=== PATIENT | female | born 1955 | race Caucasian/White ===

== ENCOUNTER → 2017-11-03 15:31 | Outpatient (CLI) | payer OTHER, SELFPAY ==
--- NOTE | 2017-11-03 | DI.RAD.S_ITS ---
PROCEDURE: XR HIP W PEL IF DONE RT 2V INDICATIONS: HIP PAIN TECHNIQUE: AP pelvis with lateral view(s) of the right hip(s). COMPARISON: None. FINDINGS: Bones: No fractures or dislocations. Pelvic ring appears intact. No suspicious bony lesions. Minimal degenerative narrowing is present within the hips bilaterally. Soft tissues: The visualized bowel gas pattern is normal. No suspicious soft tissue calcifications. IMPRESSION: Minimal early degenerative change within the hips bilaterally. Dictated by: Anya Mead M.D. on 11/03/2017 at 16:50 Approved by: Anya Mead M.D. on 11/03/2017 at 16:51
== END ==
PROVIDERS: Family Provider Family Medicine; Visit Provider Nurse Practitioner Family
DX: M16.0 Bilateral primary osteoarthritis of hip (principal); M25.551 Pain in right hip
CPT/HCPCS: 73502

== ENCOUNTER → 2018-02-12 13:38 | Outpatient (CLI) | payer OTHER, SELFPAY | PROVIDERS: Family Provider Family Medicine; Visit Provider Internal Medicine | DX: M85.88 Other specified disorders of bone density and structure, other site (principal); Z78.0 Asymptomatic menopausal state | CPT/HCPCS: 77080 ==

== ENCOUNTER → 2018-07-13 13:39 | Outpatient (CLI) | payer MEDICARE, SELFPAY ==
--- NOTE | 2018-07-13 | DI.CT.S_ITS ---
PROCEDURE: CT SINUS SCREEN WO CON INDICATIONS: Chronic sinusitis, unspecified TECHNIQUE: Noncontrast 3.0 mm axial images acquired from the frontal sinuses to the mid-sella, with coronal and sagittal reformats. For radiation dose reduction, the following was used: automated exposure control, adjustment of mA and/or kV according to patient size. COMPARISON: None. FINDINGS: Image quality: Excellent. Maxillary Sinuses: No bony remodeling or destruction. Sinuses are clear. Ethmoid Air Cells: No bony remodeling or destruction. Sinuses are clear. Sphenoid Sinuses: No bony remodeling or destruction. Sinuses are clear. Frontal Sinuses: No bony remodeling or destruction. Sinuses are clear. Ostiomeatal Complexes: Ostiomeatal complexes are patent. No Jay cells. Miscellaneous: Visualized intra-orbital contents are normal. Bilateral middle terminate dixie bullosa. Mild rightward nasal septal deviation. IMPRESSION: 1. No evidence of sinusitis. 2. Mild rightward nasal septal deviation. 3. Bilateral middle turbinate dixie bullosa. Dictated by: Guillermo Camacho M.D. on 07/13/2018 at 14:25 Approved by: Guillermo Camacho M.D. on 07/13/2018 at 14:26
== END ==
PROVIDERS: Family Provider Family Medicine; PCP Internal Medicine; Visit Provider Otolaryngology
DX: J32.8 Other chronic sinusitis (principal); J34.89 Other specified disorders of nose and nasal sinuses; J34.2 Deviated nasal septum; J34.3 Hypertrophy of nasal turbinates
CPT/HCPCS: 70486

== ENCOUNTER → 2019-05-27 10:50 | Outpatient (CLI) | payer MEDICARE, SELFPAY ==
--- NOTE | 2019-05-27 | DI.CT.S_ITS ---
PROCEDURE: CT ABDOMEN PELVIS W CON INDICATIONS: R10.10 ABD PAIN/PELVIC PAIN TECHNIQUE: After the administration of oral and intravenous contrast, 5 mm thick sections acquired from the diaphragms to the symphysis. 5 mm thick coronal and sagittal reformats were performed. For radiation dose reduction, the following was used: automated exposure control, adjustment of mA and/or kV according to patient size. COMPARISON: None. FINDINGS: Image quality: Excellent. ABDOMEN: Lung bases: Lung bases are clear. Heart size is normal. Solid organs: Liver is normal in size and enhancement. A few sub-centimeter hepatic hypodensities which most likely represent benign cyst or hemangioma. Gallbladder is absent. Biliary system is non-dilated. Pancreas enhances normally. Spleen is normal in size and enhancement. No adrenal nodules. Kidneys are normal in size and enhancement, without hydronephrosis. Right kidney scarring. Right ureter is mildly patulous. Increased contiguity of the right ureteral wall. No striated nephrogram demonstrated. Peritoneum and bowel: Stomach, small bowel, and colon loops are normal in caliber and wall thickness. No free fluid or air. Left lower quadrant surgical clip. Prior torsed epiploic appendage in the left pelvis, (). Appendix is normal in caliber. The cecum is located in the right upper abdomen. Right colon is decompressed. There is increased conspicuity of the fat in the right colonic wall. Nodes and vessels: No retroperitoneal or mesenteric adenopathy. Aorta and inferior vena cava are normal in caliber. Miscellaneous: No ventral hernias. PELVIS: Genitourinary: Bladder wall thickness is normal. Uterus is unremarkable. Miscellaneous: No inguinal hernias or adenopathy. Bones: No suspicious bony lesions. No vertebral body compression fractures. IMPRESSION: 1. Right ureteral wall is mildly patulous with increased conspicuity. There is also scarring in the right kidney. These findings may be due to current or prior urinary tract infection. 2. No bowel obstruction. No free fluid. Dictated by: Maninder Lomas M.D. on 05/27/2019 at 12:33 Approved by: Maninder Lomas M.D. on 05/27/2019 at 12:43
== END ==
PROVIDERS: Family Provider Family Medicine; PCP Internal Medicine; Referring Provider Internal Medicine; Visit Provider Internal Medicine
DX: R10.2 Pelvic and perineal pain (principal); R10.10 Upper abdominal pain, unspecified
CPT/HCPCS: 74177; Q9967

== ENCOUNTER → 2019-09-19 13:32 | Outpatient (CLI) | payer MEDICARE, SELFPAY ==
[2019-09-22 04:26] LABS: COVID19 Sendout Not Detected (Not Detected)
== END ==
PROVIDERS: Family Provider Family Medicine; PCP Internal Medicine; Visit Provider Registered Nurse
DX: R05 Cough (principal)
CPT/HCPCS: 87635

== ENCOUNTER → 2019-10-16 14:51 | Outpatient (CLI) | payer MEDICARE, SELFPAY ==
--- NOTE | 2019-10-16 | DI.RAD.S_ITS ---
PROCEDURE: XR CHEST 2V INDICATIONS: Chronic Cough TECHNIQUE: 2 views of the chest were acquired. COMPARISON: None. FINDINGS: Surgical changes and devices: None. Lungs and pleura: Scattered subsegmental atelectasis and/or scarring. No focal consolidation. No pleural effusions or pneumothorax. Mediastinum: Mediastinal contours are normal. Heart size is normal. Bones and chest wall: No suspicious bony abnormalities. Soft tissues appear unremarkable. IMPRESSION: No acute disease Dictated by: Joselito Ramirez M.D. on 10/16/2019 at 15:37 Approved by: Joselito Ramirez M.D. on 10/16/2019 at 15:37
== END ==
PROVIDERS: Family Provider Family Medicine; PCP Family Medicine; Referring Provider Family Medicine; Visit Provider Family Medicine
DX: R05 Cough (principal)
CPT/HCPCS: 71046

== ENCOUNTER → 2020-05-28 08:18 | Outpatient (CLI) | payer MEDICARE, SELFPAY ==
[2020-05-28] MEDS: COVID-19 VACC #1, MRNA(MOD) 100 MCG/0.5 ML VIAL IM (08:24)
== END ==
PROVIDERS: Visit Provider Internal Medicine
DX: Z23 Encounter for immunization (principal)
CPT/HCPCS: 0011A; 91301

== ENCOUNTER → 2020-06-25 09:56 | Outpatient (CLI) | payer MEDICARE, SELFPAY ==
[2020-06-25] MEDS: COVID-19 VACC #2, MRNA(MOD) 100 MCG/0.5 ML VIAL IM (09:59)
== END ==
PROVIDERS: Visit Provider Internal Medicine
DX: Z23 Encounter for immunization (principal)
CPT/HCPCS: 0012A; 91301

== ENCOUNTER → 2020-09-22 15:04 | Outpatient (CLI) | payer MEDICARE, SELFPAY ==
[2020-09-22 16:56] LABS: Cancer Antigen 125 12.2 U/mL (0-35)
== END ==
PROVIDERS: PCP Family Medicine; Referring Provider Obstetrics & Gynecology; Visit Provider Obstetrics & Gynecology
DX: R19.09 Other intra-abdominal and pelvic swelling, mass and lump (principal)
CPT/HCPCS: 36415; 86304

== ENCOUNTER → 2020-09-25 12:02 | Outpatient (CLI) | payer MEDICARE, SELFPAY ==
--- NOTE | 2020-09-25 12:03 | DI.US.S_ITS ---
PROCEDURE: US PELVIC COMPLETE INDICATIONS: BLOATING; FAMILY HX OVARIAN CANCER TECHNIQUE: Real-time scanning was performed of the pelvic organs, with image documentation. Additional endovaginal scanning was necessary due to incomplete visualization of the adnexal and endometrial structures by transabdominal scanning. COMPARISON: [facility], CT, CT ABDOMEN PELVIS W CON, 05/27/2019, 11:40. FINDINGS: Uterus: Uterus is normal in size at 7.2 x 3.7 x 4.9 cm. The endometrium measures 1.9 mm in combined thickness. Ovaries: Ovaries are not identified. No adnexal masses seen. Other: No pathologic free abdominal or pelvic fluid. IMPRESSION: Ovaries are not identified and cannot be evaluated. Dictated by: Walt So [facility] Interpreted: Freddy Romero MD on 09/25/2020 at 12:53 Transcribed by: LEROY on 09/25/2020 at 12:54 Approved by: Freddy Romero M.D. on 09/25/2020 at 14:00
== END ==
PROVIDERS: PCP Family Medicine; Referring Provider Obstetrics & Gynecology; Visit Provider Obstetrics & Gynecology
DX: R14.0 Abdominal distension (gaseous) (principal); Z80.41 Family history of malignant neoplasm of ovary
CPT/HCPCS: 76830; 76856

== ENCOUNTER → 2021-02-05 13:01 | Outpatient (CLI) | payer MEDICARE, SELFPAY ==
--- NOTE | 2021-02-05 13:02 | DI.MG.S_ITS ---
BILATERAL DIGITAL SCREENING MAMMOGRAM 3D/2D WITH CAD: 02/05/2021 CLINICAL: Routine screening. Family history of breast cancer. Comparison is made to exams dated: 06/25/2015 mammogram and 09/28/2017 mammogram - outside facility. There are scattered fibroglandular elements in both breasts. Current study was also evaluated with a Computer Aided Detection (CAD) system. No significant masses, calcifications, or other findings are seen in either breast. There has been no significant interval change. IMPRESSION: NEGATIVE There is no mammographic evidence of malignancy. A 1 year screening mammogram is recommended. This exam was interpreted at Station ID: [id number]. NOTE: For mammograms, a report in lay terms will be sent to the patient. Approximately 15% of breast malignancies will not be visualized mammographically. In the management of a palpable breast mass, a negative mammogram must not discourage biopsy of a clinically suspicious lesion. Electronically Signed By: Candace burns/[place]:02/05/2021 14:29:26 letter sent: Normal Exam ACR BI-RADS Category 1: Negative [id number]
== END ==
PROVIDERS: PCP Internal Medicine; Referring Provider Internal Medicine; Visit Provider Internal Medicine
DX: Z12.31 Encounter for screening mammogram for malignant neoplasm of breast (principal); Z80.3 Family history of malignant neoplasm of breast
CPT/HCPCS: 77063; 77067

== ENCOUNTER → 2021-04-29 17:03 | Outpatient (CLI) | payer MEDICARE, SELFPAY ==
[2021-04-29 18:12] LABS: Add Manual Diff / Slide Review NO; Basophils Absolute Auto 0 /uL (0-100); Basophils Percent Auto 0.3 % (0-2); Eosinophils Absolute Auto 100 /uL (0-450); Eosinophils Percent Auto 1.8 % (2-4); Hematocrit 40.5 % (36-46); Hemoglobin 14.2 g/dL (12.0-16.0); Lymphocytes Absolute Auto 1900 /uL (1100-4500); Lymphocytes Percent Auto 31.8 % (25-40); Mean Corpuscular Hemoglobin 32.8 PG (26-34); Mean Corpuscular Volume 93.9 fL (80-100); Monocytes Absolute Auto 500 /uL (0-900); Monocytes Percent Auto 8.6 % (3-14); Neutrophils Absolute Auto 3500 /uL (1500-7000); Neutrophils Percent Auto 57.5 % (50-75); Platelet Count 273 X10^3/uL (150-400); Red Blood Cell Count 4.31 X10^6/uL (4.0-5.2); Red Cell Distribution Width 12.7 % (11.6-14.8); White Blood Cell Count 6.1 X10^3/uL (4.5-11.0)
[2021-04-29 18:25] LABS: Alanine Aminotransferase 14 IU/L (<35); Albumin 4.3 g/dL (3.5-5.0); Albumin Globulin Ratio 1.3 (1.0-2.8); Alkaline Phosphatase 63 U/L (38-126); Aspartate Aminotransferase 20 IU/L (14-36); BUN Creatinine Ratio 12.9 (6-22); Bilirubin Total 0.6 mg/dL (0.2-1.3); Blood Urea Nitrogen 11 mg/dL (7-17); C-Reactive Protein Quant < 0.5 mg/dL (<1.0); Calcium 9.5 mg/dL (8.4-10.2); Carbon Dioxide 31 mmol/L (22-32); Chloride 102 mmol/L (98-107); Estimated Glomerular Filt Rate > 60.0 mL/min (>60); Globulin 3.2 g/dL (1.7-4.1); Glucose 93 mg/dL (80-110); HEMOLYSIS < 15 (0-50); Potassium 3.7 mmol/L (3.4-5.1); Sodium 137 mmol/L (137-145); Total Protein 7.5 g/dL (6.3-8.2)
[2021-04-29 18:29] LABS: Rheumatoid Factor < 8.6 IU/mL (<12.0)
[2021-04-29 18:35] LABS: Erythrocyte Sedimentation Rate 10 MM/HR (0-20)
[2021-04-29 18:39] LABS: Free T4, Direct Thyroxine 0.95 ng/dL (0.78-2.19)
[2021-04-29 18:54] LABS: Thyroid Stimulating Hormone 2.08 uIU/mL (0.47-4.68)
[2021-05-01 12:44] LABS: ANA Screen, IFA Negative (.)
== END ==
PROVIDERS: PCP Internal Medicine; Referring Provider Internal Medicine; Visit Provider Internal Medicine
DX: M12.9 Arthropathy, unspecified (principal)
CPT/HCPCS: 36415; 80053; 84439; 84443; 85025; 85651; 86038; 86140; 86430

== ENCOUNTER → 2021-06-03 12:29 | Outpatient (CLI) | payer MEDICARE, SELFPAY ==
--- NOTE | 2021-06-03 12:31 | DI.ECHO.S_ITS ---
[facility] +---------+ : : [address] : : : : [id number] : : : : Phone: [phone]+ Echocardiogram Report + + :Name: MARISELA THORNTON Study Date: 06/03/2021 Height: 67.5 in: :[facility] ReadingLocation: Weight: 160 lb : : Gender: Female BSA: 1.9 m2 : :: 1955 Age: 66 yrs BP: 140/80 mmHg: :Reason For Study: Arrhythmia : :Ordering Physician: : :BRIA Performed By: Terry Armendariz : :Referring: COLT BLACKBURN : + + Interpretation Summary The left ventricle is normal in size and wall thickness. Left ventricular systolic function appears normal without focal wall motion abnormalities. The ejection fraction is estimated to be 60-65%. The right ventricle is normal in size and function. There is mild mitral regurgitation. There is mild tricuspid regurgitation. The right ventricular systolic pressure is estimated to be at least 23 mmHg based on an estimated right atrial pressure of 3 mm Hg. Procedure: A two-dimensional transthoracic echocardiogram with color flow and Doppler was performed. The study quality was technically adequate. Most of the acoustic windows were suboptimal, but the best imaging was obtained from the parasternal window. There is no prior echocardiogram noted for this patient. The patient was in normal sinus rhythm during the exam. Left Ventricle: The left ventricle is normal in size and wall thickness. There is no thrombus. Left ventricular systolic function appears normal without focal wall motion abnormalities. The ejection fraction is estimated to be 60-65%. Diastolic parameters suggest a relaxation abnormality of the left ventricle, consistent with probable normal filling pressures. Right Ventricle: The right ventricle is normal in size and function. Atria: Both atria are normal in size. There is no Doppler evidence for an interatrial shunt. Mitral Valve: The mitral valve is normal. There is mild mitral regurgitation. Aortic Valve: The aortic valve opens well. The aortic valve is not well visualized. There is no aortic valve stenosis. No aortic regurgitation is present. Tricuspid Valve: The tricuspid valve is normal. There is mild tricuspid regurgitation. The right ventricular systolic pressure is estimated to be at least 23 mmHg based on an estimated right atrial pressure of 3 mm Hg. Pulmonic Valve: The pulmonic valve is not well visualized. Great Vessels: The aortic root is normal size. The ascending aorta is normal in size. The aortic arch is normal in size. The IVC is of normal diameter and collapses greater than 50% with a sniff. This suggests a low right atrial pressure of 3 mm Hg. Pericardium/ Pleura There is an anterior echo-free space consistent with a fat pad. There is no pleural effusion. MMode/2D Measurements & Calculations LVIDd: 4.1 cm LVOT diam: 1.8 cm LVIDs: 2.3 cm Ao root diam: 2.8 cm FS: 43.9 % asc Aorta Diam: 2.7 cm IVSd: 0.60 cm Ao Arch Diam (Prox Trans): 2.1 cm LVPWd: 0.80 cm LV aranda. diameter/BSA (cm/m^2): 2.2 LV sys. diameter/BSA (cm/m^2): 1.2 LA A2 area: 7.9 cm2 RA long axis: 3.6 cm LA A4 area: 13.1 cm2 RA area: 12.2 cm2 LA length (vol): 3.8 cm RA vol: 34.7 ml LA vol: 23.5 ml RA : 18.7 ml/m2 LA vol index: 12.7 ml/m2 TAPSE_phl: 2.5 cm Doppler Measurements & Calculations Ao V2 max: 106.0 cm/sec LVOT Max Zhao: 88.1 cm/sec Ao V2 mean: 83.6 cm/sec LV V1 max P.1 mmHg Ao max P.0 mmHg LV V1 VTI: 19.3 cm Ao mean P.0 mmHg MAIA(I,D): 1.9 cm2 Ao V2 VTI: 25.5 cm MAIA(V,D): 2.1 cm2 sev ratio: 0.76 MAIA indexed to BSA (cm^2/m^2): 1.0 MV E max zhao: 65.6 cm/sec TR max zhao: 224.0 cm/sec MV A max zhao: 72.0 cm/sec TR max P.1 mmHg MV E/A: 0.91 Med Peak E' Zhao: 5.3 cm/sec E/E' med: 12.3 Lat Peak E' Zhao: 8.2 cm/sec E/E' lat: 8.0 E/e' average: 10.2 MV dec time: 0.25 sec SV(LVOT): 49.1 ml AV VR_phl: 0.83 MAIA(VTI)/BSA_phl: 1.0 MV P1/2t-pr_phl: 73.0 msec Reading Physician:06:14 PM
== END ==
PROVIDERS: PCP Internal Medicine; Referring Provider Internal Medicine; Visit Provider Internal Medicine
DX: I08.1 Rheumatic disorders of both mitral and tricuspid valves (principal); R01.1 Cardiac murmur, unspecified; I49.9 Cardiac arrhythmia, unspecified
CPT/HCPCS: 93306

== ENCOUNTER → 2021-06-07 09:50 | Outpatient (CLI) | payer MEDICARE, SELFPAY ==
--- NOTE | 2021-06-30 09:09 | P.HOLT.S_ITS ---
[facility] Report Referral & Results Date Patient Seen: 06/07/21 Requesting provider: Nixon Guzmán Indication: Arrhythmia Duration of monitoring (days): 14 Diary information: There were 9 patient triggered events and 6 patient diary entries All of these patient events were associated with sinus rhythm and simple PVCs Data: Minimum heart rate identified was 59 beats per minute at 09:35 on 06/10/2021 Maximum sinus heart rate was 153 beats per minute at 11:57 on 06/08/2021 Maximum overall heart rate was 176 beats per minute at 19:52 on 06/12/2021 during a run of SVT Less than 1% of identified beats were ventricular or supraventricular ectopic in origin, which would classify them as rare. 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
== END ==
PROVIDERS: PCP Internal Medicine; Referring Provider Internal Medicine; Visit Provider Internal Medicine
DX: I49.9 Cardiac arrhythmia, unspecified (principal)
CPT/HCPCS: 93246; 93248

== ENCOUNTER → 2021-06-30 14:47 | Outpatient (CLI) | payer MEDICARE, SELFPAY ==
--- NOTE | 2021-06-30 | DI.RAD.S_ITS ---
PROCEDURE: XR ABDOMEN MIN 2V INDICATIONS: ALTERED BOWEL FUNCTION TECHNIQUE: 2 views of the abdomen were acquired. COMPARISON: None. FINDINGS: Surgical changes and devices: Cholecystectomy clips. Bowel: No pneumoperitoneum. The bowel gas pattern is nonspecific. Large amount of stool noted in the right colon in the rectum. Moderate amount of stool in the left colon. Soft tissues: No masses; visualized solid organ contours appear normal in size. No suspicious abdominal calcifications. Bones: No suspicious bony abnormalities. IMPRESSION: 1. Nonspecific bowel gas pattern without definite evidence of obstruction. If patient's symptoms persist or worsen, consider CT scan of the abdomen/pelvis for additional evaluation. 2. Large right colon, large rectal and moderate left colon fecal loading. Dictated by: Sussy Angulo MD, PhD on 06/30/2021 at 16:50 Approved by: Sussy Angulo MD, PhD on 06/30/2021 at 16:51
== END ==
PROVIDERS: PCP Internal Medicine; Referring Provider Internal Medicine Gastroenterology; Visit Provider Internal Medicine Gastroenterology
DX: R19.8 Other specified symptoms and signs involving the digestive system and abdomen (principal); R10.9 Unspecified abdominal pain
CPT/HCPCS: 74019

== ENCOUNTER → 2021-07-16 14:43 | Outpatient (CLI) | payer MEDICARE, SELFPAY ==
[2021-07-16 16:15] LABS: COVID19 -Nasal RAPID Negative (Negative)
== END ==
PROVIDERS: PCP Internal Medicine; Visit Provider Family Medicine Sleep Medicine
DX: Z20.822 Contact with and (suspected) exposure to COVID-19 (principal)
CPT/HCPCS: 87635; C9803

== ENCOUNTER 2021-07-19 11:17 | Day surgery (SDC) | payer MEDICARE, SELFPAY ==
[2021-07-19] VITALS (9 sets, daily range): BP systolic 122–155; BP diastolic 55–71; PULSE 64–87; RESP 13–20; TEMP 36.2–36.8; O2SAT 94–100; BMI 24.3
--- NOTE | 2021-07-19 | PATH_ITS ---
[facility] Accession Number: [id number] . 01 Material submitted: . colon - APPENDICEAL ORIFICE POLYP . 02 Diagnosis: Appendiceal Orifice Polyp: Serrated lesion, cannot completelye exclude sessile serrated adenoma. MRV 07/21/2021 0957 Local . 02 Electronically signed: . Mahsa Crane MD, Pathologist NPI- [id number] . 01 Gross description: . APPENDICEAL ORIFICE POLYP: Received in formalin is 1 fragment(s) of sigala, soft tissue measuring 0.3 x 0.3 x 0.3 cm submitted entirely in 1 cassette(s) /NAA 07/20/2021 2249 Local . 02 Pathologist provided ICD-10: R10.9 . 02 CPT . 771564 Specimen Comment: A courtesy copy of this report has been sent to [phone], [phone] Specimen Comment: 2055 Performed at: 01 [facility] [address], [place], [place] [id number] MD Roddy Saldivar MD Phone: [phone] Performed at: 02 [facility] [address] [place], [place] [id number] MD Janna Clemens MD Phone: [phone]
--- NOTE | 2021-07-19 12:04 | PM.HP.1 ---
History of Present Illness History of Present Illness Date Patient Seen: 07/19/21 Time Patient Seen: 12:04 Chief complaint: SDC Narrative: Personal history of colon polyps. Last exam was a couple years ago by Dr. Amin. A 2 year recall was recommended. She struggles with fecal loading and the symptoms that go along with that. I reviewed my note from June 29. Apart from the revelation of fecal loading, no significant changes. Patient History Medical History Depression Gluten intolerance H/O adenomatous polyp of colon H/O renal calculi Hayfever Hepatitis C test positive IBS (irritable bowel syndrome) Postmenopausal HRT (hormone replacement therapy) Surgical History S/P cholecystectomy S/P total knee arthroplasty (~2015) S/P tubal ligation (~1979) Family & Social History Social History: household members spouse Tobacco & Substance use: Smoking Status Never smoker alcohol intake frequency holiday/special occasion Substance Use Type does not use Meds Home Medications and Allergies Home Medications Medication Instructions Recorded Confirmed Type [VITAMIN] #0 08/03/03 05/20/21 History fluticasone propionate 50 1 spray NASAL DAILY 04/09/18 07/19/21 History mcg/actuation nasal spray,suspension cholecalciferol (vitamin D3) 25 25 mcg PO DAILY 11/23/20 07/19/21 History mcg (1,000 unit) capsule albuterol sulfate 90 mcg/actuation 2 puff INHALATION Q6H PRN #8.5 g 11/24/20 07/19/21 Rx aerosol inhaler sertraline 50 mg tablet 75 mg PO DAILY #135 tab 05/24/21 07/19/21 Rx estradiol 0.05 mg-norethindrone See Rx Instructions .ROUTE 05/31/21 07/19/21 Rx 0.14 mg/24 hr semiwkly transderm .COMPLEX #24 patch patch (CombiPatch) bupropion HCl 75 mg tablet 75 mg PO DAILY #30 tab 06/22/21 07/19/21 Rx estradiol 0.05 mg-norethindrone patch 07/16/21 History 0.14 mg/24 hr semiwkly transderm patch (CombiPatch) Allergies Allergy/AdvReac Type Severity Reaction Status Date / Time cephalexin Allergy Mild Rash Verified 05/20/21 10:21 Penicillins Allergy Mild rash Verified 05/20/21 10:21 Review of Systems Review of Systems ROS: Yes All systems reviewed with the patient and are negative except as otherwise documented Exam Vital Signs (past 8 hours): - 07/19/21 11:32 Temperature 98.2 F Pulse Rate 87 Respiratory Rate 16 Blood Pressure 134/68 Pulse Oximetry 98 Oxygen Delivery Method Room Air Const General: cooperative and comfortable Orientation: alert HENMT Head: normocephalic Ears: external ears normal Nose: external nose normal Face and sinus: normal facial exam Eyes General: appearance normal, both eyes and all related structures Neck Neck: normal visual inspection Chest Chest: normal inspection of the chest Resp Effort & Inspection: normal respiratory effort Cardio Rate: regular rate GI Inspection: normal to inspection Skin General: no rashes or lesions noted and No jaundice Neuro General: patient alert and moves all extremities Cognition: normal cognition Speech: speech normal Extrem General: no pedal edema Psych Appearance: grossly normal Assessment & Plan Assessment & Plan narrative: 66-year-old female with a personal history of adenomatous colon polyps. Colonoscopy is pursued today. Time Spent With Patient Critical Care time: I spent a total of [] minutes of critical care time on this patient's care today; this time is exclusive of procedural time.
[2021-07-19] MEDS: SODIUM CHLORIDE 0.9% 1,000 ML 70 ML IV (12:08)
--- NOTE | 2021-07-19 14:12 | P.OP.COLON_ITS ---
Operative Date/Time/Diagnoses Date of procedure: 07/19/21 Time of procedure: 14:12 Pre-op diagnosis: Personal history of colon polyps Post-op diagnosis: same Procedure & Clinicians Study performed: Colonoscopy with biopsy Same procedure as scheduled: Yes Indications: Personal history of colon polyps Surgeon: Balwinder Roach Procedure Notes SCOAP/Timeout: Done Procedure in detail: After the risks and benefits were explained, written and verbal informed consent was obtained. The patient was brought into the procedure room and placed into the left lateral decubitus position. Please see nurse automotive glass technician note for sed ation details. Digital rectal examination was accomplished. The scope was introduced into the patient and advanced under direct visualization to the cecum as identified by the appendiceal orifice and ileocecal valve. The scope was slowly withdrawn to carefully examine the mucosa for any defects or lesions. Comprehensive imaging was accomplished throughout the rectum including the dentate line. The colon was decompressed, the scope was then removed from the patient who tolerated the procedure well. Pediatric colonoscope Bowel prep adequate Scope withdrawal time: 14 minutes Sedation minutes: 33 Complications: none Impression: Patient had a very tortuous colon and challenging navigation. There was a sessile irregular approximately 7-8 mm polyp intimately associated with the appendiceal orifice. My 1st instinct was to attempt a snare. However the polyp seemed to extend down into the appendiceal orifice and I suspect this would place her at moderately high risk for a perforation. I therefore elected to take a biopsy of the polyp close to where it dropped down into the appendiceal orifice for histopathologic analysis. Endoscopic diagnosis 1. Twisty colon 2. Appendiceal orifice polyp Post-procedure Plan for aftercare: 1. Await histopathology 2. Short-term GI clinic follow-up to discuss the next steps which may unfortunately be a and appendectomy/Cecectomy. Disposition: PACU
== END 2021-07-19 15:00 | disposition home or self-care (01) ==
PROVIDERS: PCP Internal Medicine; Referring Provider Internal Medicine Gastroenterology; Visit Provider Internal Medicine Gastroenterology
PROC: 0DJD8ZZ Inspection of Lower Intestinal Tract, Via Natural or Artificial Opening Endoscopic (ICD-10-PCS; CPT 45378; principal; 2021-07-19 12:30)
DX: Z12.11 Encounter for screening for malignant neoplasm of colon (principal); Z86.010 Personal history of colon polyps; D12.1 Benign neoplasm of appendix
CPT/HCPCS: 45380; J2704

== ENCOUNTER → 2021-08-19 10:44 | Outpatient (CLI) | payer MEDICARE, SELFPAY ==
--- NOTE | 2021-08-19 10:46 | DI.CT.S_ITS ---
PROCEDURE: CT ABDOMEN PELVIS W CON INDICATIONS: Abdominal pain TECHNIQUE: After the administration of oral and IV contrast, axial sections were acquired from the lung bases to the pubic symphysis. Coronal and sagittal reformats were performed. For radiation dose reduction, the following was used: automated exposure control, adjustment of mA and/or kV according to patient size. COMPARISON: [facility], CT, CT ABDOMEN PELVIS W CON, 05/27/2019, 11:40. FINDINGS: Image quality: Excellent. Lung bases: Unremarkable. Heart: No significant findings. ABDOMEN: Liver: A few small hypodense foci which are unchanged since 2019 and have the appearance of benign cysts. Gallbladder: Surgically absent. Biliary ducts: Unremarkable. Pancreas: Unremarkable. Spleen: Unremarkable. Adrenal Glands: No nodule. Kidneys and Ureters: Right renal scarring. No hydronephrosis. Stomach and Bowel: Stomach, small bowel loops, and colon are unremarkable. Appendix is not dilated, (2/38). No appendiculolith. Small low-density nodule in the left pelvis, (2/68), unchanged since 2019. Possibly prior epiploic appendagitis. Peritoneum: No abnormal intraperitoneal fluid. No free air. Ventral Wall: No hernia. Abdominal Nodes: No retroperitoneal or mesenteric adenopathy by size criteria. Vessels: Aorta and inferior vena cava are normal in size. Mild atherosclerotic plaque. Circumaortic left renal vein. PELVIS: Pelvic Organs: Unremarkable. Bladder: Unremarkable. Pelvic Nodes: No enlarged lymph nodes. Miscellaneous: No inguinal hernias are seen. Bones: No suspicious lesion. No compression fracture. IMPRESSION: 1. The appendix is not dilated. 2. No metastatic disease identified. No adenopathy. No free fluid. 3. No hydronephrosis. Similar scarring at the right kidney. Dictated by: Maninder Lomas M.D. on 08/19/2021 at 14:15 Approved by: Maninder Lomas M.D. on 08/19/2021 at 14:30
[2021-08-19 11:15] LABS: BUN Creatinine Ratio 18.1 (6-22); Blood Urea Nitrogen 13 mg/dL (7-17); Estimated Glomerular Filt Rate > 60 mL/min (>60)
== END ==
PROVIDERS: PCP Internal Medicine; Referring Provider Surgery; Visit Provider Surgery
DX: R10.9 Unspecified abdominal pain (principal); Z90.49 Acquired absence of other specified parts of digestive tract
CPT/HCPCS: 36415; 74177; 82565; 84520; Q9967

== ENCOUNTER → 2021-08-31 09:45 | Outpatient (CLI) | payer MEDICARE, SELFPAY ==
[2021-08-31 12:26] LABS: COVID19 -Nasal RAPID Negative (Negative)
== END ==
PROVIDERS: PCP Internal Medicine; Visit Provider Surgery
DX: Z01.812 Encounter for preprocedural laboratory examination (principal); Z20.822 Contact with and (suspected) exposure to COVID-19
CPT/HCPCS: 87635

== ENCOUNTER 2021-09-01 07:48 | Emergency (ER) | payer MEDICARE, SELFPAY ==
[2021-09-01 08:00] VITALS: BP 139/74; PULSE 81; RESP 18; TEMP 36.6; O2SAT 97
--- NOTE | 2021-09-01 08:08 | ED.NAVMDI ---
HPI - Nausea/Vomiting/Diarrhea General Chief complaint: Nausea/Vomiting/Diarrhea Stated complaint: Thinks reaction to surgery prep meds, vomiting Time Seen by Provider: 09/01/21 07:58 History of Present Illness HPI Narrative: Patient is a 66-year-old female history of depression anxiety presents today with nausea. She is supposed to have laparoscopic cecetomy pain check in around 9:00 a.m. this morning. Yesterday she follow the instruction she took Dulcolax neomycin and Flagyl. She said after she took Flagyl she vomited for couple of hours then it stopped. She has take another dose of Flagyl at 10:00 p.m. she again vomited for a couple of hours. She still feels slightly nauseous but has had no further vomiting. She does not have clear stool but it is runny. Denies any significant abdominal cramping. Has she has a mild headache she feels like she might be dehydrated. She was trying to drink fluids. No fever. She wanted to be checked before checking into her surgery Related Data Home Medications Medication Instructions Recorded Confirmed fluticasone propionate 50 1 spray NASAL DAILY 04/09/18 09/01/21 mcg/actuation nasal spray,suspension cholecalciferol (vitamin D3) 25 25 mcg PO DAILY 11/23/20 09/01/21 mcg (1,000 unit) capsule estradiol 0.05 mg-norethindrone 1 patch TOPICAL 2XW 07/16/21 09/01/21 0.14 mg/24 hr semiwkly transderm patch (CombiPatch) fexofenadine 180 mg tablet 180 mg PO BEDTIME 08/23/21 09/01/21 Previous Rx's Medication Instructions Recorded albuterol sulfate 90 mcg/actuation 2 puff INHALATION Q6H PRN #8.5 g 11/24/20 aerosol inhaler sertraline 50 mg tablet 75 mg PO DAILY #135 tab 05/24/21 bupropion HCl 75 mg tablet 75 mg PO DAILY #30 tab 06/22/21 acetaminophen 325 mg capsule 650 mg PO QID PRN #60 cap 09/01/21 (Tylenol) docusate sodium 100 mg capsule 100 mg PO BID #30 cap 09/01/21 (Colace) ibuprofen 200 mg tablet 400 mg PO Q6H #60 tab 09/01/21 ondansetron HCl 4 mg tablet 4 mg PO Q6H PRN #20 tab 09/01/21 oxycodone 5 mg tablet 5 mg PO Q6H PRN #20 tab 09/01/21 Allergies Allergy/AdvReac Type Severity Reaction Status Date / Time Penicillins Allergy Severe rash, Verified 09/01/21 09:27 swelling cephalexin Allergy Intermediate Rash Verified 09/01/21 09:27 Cephalosporins Allergy Intermediate Rash Verified 09/01/21 09:27 lactase [From Dairy Aid] Allergy Intermediate ITCHING Verified 09/01/21 09:27 gluten AdvReac Intermediate Abdominal Verified 09/01/21 09:27 pain, diarrhea Review of Systems Review of Systems Narrative: GENERAL: Denies chills, fatigue, malaise, fever, sweats, travel HEENT: Denies sinus pain, ear pain, sore throat, difficulty swallowing, neck pain RESPIRATORY: Denies dyspnea, cough, wheezing, hemoptysis, sputum. CARDIOVASCULAR: see HPI : Denies dysuria, frequency, incontinence, hematuria, urinary retention, flank pain. MUSCULOSKELETAL: Denies weakness, joint pain, or bony pain SKIN: No rash, no erythema, no pruritus NEUROLOGIC: Denies weakness, dizziness, headache, numbness, change in speech, confusion PSYCHIATRIC: No concerning psychosocial issues. 12 point review of systems is negative except for those stated above and HPI Patient History Medical History (Updated 09/01/21 @ 08:22 by Mally Lucio DO) Arthritis Depression Gluten intolerance H/O adenomatous polyp of colon H/O renal calculi Hayfever Heart murmur Hepatitis C test positive IBS (irritable bowel syndrome) Kidney stones Postmenopausal HRT (hormone replacement therapy) Surgical History S/P cholecystectomy S/P total knee arthroplasty (~2015) S/P tubal ligation (~1979) Social History household members: spouse Smoking Status: Former smoker alcohol intake: current Smoking Status: Former smoker alcohol intake frequency: holidays/special occasions only Substance Use Type: does not use Exam Initial Vital Signs Initial Vital Signs: Vital Signs Temperature 97.8 F 09/01/21 08:00 Pulse Rate 81 09/01/21 08:00 Respiratory Rate 18 09/01/21 08:00 Blood Pressure 139/74 09/01/21 08:00 Pulse Oximetry 97 09/01/21 08:00 GENERAL: Alert well-appearing 66-year-old female in [no acute] distress. HEENT: Head atraumatic,EOMI, pupils reactive, face symmetric, [moist] mucous membranes CARDIOVASCULAR: Regular rate and rhythm without murmurs, rubs or gallops. RESPIRATORY: Breath sounds equal bilaterally, no wheezes rales or rhonchi. ABDOMEN: Soft, nontender. Normoactive bowel sounds all 4 quadrants. No guarding or rebound. EXTREMITIES: Normal range of motion, no clubbing or edema. Neurovascularly intact NEUROLOGICAL: Alert and oriented x4. SKIN: Warm, dry, no laceration, no petechiae, no rashes or lesions. Course Orders Ordered: Discontinued Medications Ondansetron HCl (Ondansetron 4 Mg Odt) 4 mg SL NOW ONE Stop: 09/01/21 08:17 Last Admin: 09/01/21 08:25 Dose: 4 mg Documented by: ARIADNE MDM - Nausea/Vomiting/Diarrhea MDM Narrative Medical decision making narrative: The patient overall appears well. She has 1 hour before she has to check into her surgery. She has no significant abdominal pain or vomiting at this time. She has mild headache which may be due from dehydration. However vitals are stable. Time discussed case with Dr. Bull he states that he is happy to give her fluids in the OR during her surgery. Discharge Plan Departure Patient Disposition: Home Clinical Impression: Vomiting Instructions: DI for Vomiting -- Adult Activity Restrictions/Additional Instructions: Starting had a bad experience with your prep Please check in as scheduled for your surgery I have discussed her situation with Dr. Bull. Please follow-up with Dr. Bull an your primary care provider Continue all medications as prescribed Emergency department if you should have any new or worsening symptoms Prescriptions: No Action albuterol sulfate 90 mcg/actuation HFA aerosol inhaler 2 puff inhalation Q6H PRN (Reason: shortness of breath or wheezing) Qty: 8.5 2RF Label Comments: rare use for allergies sertraline 50 mg tablet 75 mg PO DAILY Qty: 135 3RF bupropion HCl 75 mg tablet 75 mg PO DAILY Qty: 30 3RF fluticasone propionate 50 mcg/actuation spray,suspension 1 spray NASAL DAILY 0RF cholecalciferol (vitamin D3) 25 mcg (1,000 unit) capsule 25 mcg PO DAILY 0RF fexofenadine 180 mg Tablet 180 mg PO BEDTIME 0RF ibuprofen 200 mg tablet 400 mg PO Q6H Qty: 60 0RF docusate sodium [Colace] 100 mg capsule 100 mg PO BID Qty: 30 0RF oxycodone 5 mg tablet 5 mg PO Q6H PRN (Reason: pain) Qty: 20 0RF acetaminophen [Tylenol] 325 mg capsule 650 mg PO QID PRN (Reason: pain) Qty: 60 0RF ondansetron HCl 4 mg tablet 4 mg PO Q6H PRN (Reason: nausea and vomiting) Qty: 20 0RF CombiPatch 0.05-0.14 mg/24 hr patch semiweekly 1 patch topical 2XW 0RF Label Comments: off 09/01 Referrals: Nixon Guzmán MD [Primary Care Provider] -
[2021-09-01] MEDS: ONDANSETRON 4 MG ODT SL (08:25)
--- NOTE | 2021-09-01 08:31 | PC.NURSE ---
pt has not vomited since arrival.
[2021-09-01 08:42] VITALS: BP 139/70; PULSE 79; RESP 16; O2SAT 97
== END 2021-09-01 08:42 | disposition home or self-care (01) ==
PROVIDERS: Emergency Provider Emergency Medicine; PCP Internal Medicine; Referring Provider Surgery
DX: R11.2 Nausea with vomiting, unspecified (principal)

== ENCOUNTER 2021-09-01 08:47 | Inpatient (IN) | payer MEDICARE, SELFPAY ==
[2021-08-23 13:56] VITALS: BMI 24.3
[2021-09-01] VITALS (10 sets, daily range): BP systolic 97–143; BP diastolic 015–75; PULSE 72–96; RESP 11–21; TEMP 36.4–36.9; O2SAT 92–100; BMI 24.3
--- NOTE | 2021-09-01 | PATH_ITS ---
[facility] Accession Number: [id number] . 01 Material submitted: . colon - PARTIAL CECECTOMY . 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 Please see summary data below. . Tumor site: Diffusely involving appendix. Histologic type: Low-grade appendiceal mucinous neoplasm. Histologic grade: G1, well differentiated. Tumor deposits: Not identified. Tumor extent: Confined to luminal appendix with retention of muscularis mucosae. Lymphovascular invasion: Not identified. Perineural invasion: Not identified. Margin status for noninvasive tumor and mucin: All margins negative for noninvasive tumor and mucin. Regional lymph node status: Not applicable (No regional lymph nodes submitted or found). Pathologic Stage Classification (AJCC 8th Edition): pT category: pTis (LAMN). pN category: pN not assigned (no nodes submitted or found). pM category: Not applicable. . Additional findings: Sessile serrated adenoma of cecum. V 09/10/2021 1221 Local . 02 Comment: As part of routine plant quality manager, Dr. Crane and Dr. Reyes also reviewed this case and agree with the interpretation. Dr. Clemens discussed results with Dr. Bull on 09/10/2021. . 02 Diagnosis provided by: . Janna Clemens MD, Pathologist NPI- [id number] . 01 Electronically signed: . Janna Clemens MD, Pathologist NPI- [id number] . 01 Gross description: . Received in formalin and labeled with the patient's name, designated 1. Partial cecectomy is a 3.5 x 1.5 x 1.5 cm portion of cecum, received closed with a stapled proximal end (removed and inked blue), contiguous with a 10.5 cm long by 0.7 cm in diameter vermiform appendix, received longitudinally opened proximally over a length of 4.5 cm, and a scant amount of mesoappendix. The serosa is gomez-sigala with moderate focal dense hemorrhagic adhesions. The rim of the opened lumen is inked orange. Within the proximal appendix/appendiceal orifice area, there is a 1.5 x 1.2 x 0.3 cm ragged polyp, that is exposed at the defect and 0.4 cm from the nearest staple line. The remaining mucosa is sigala, wrinkled and unremarkable. The wall thickness is 0.1-0.3 cm. The appendiceal lumen is otherwise pinpoint-0.4 cm, filled with mucoid material in the distal portion. No additional lesions are identified. There is no attached adipose tissue and no lymph nodes are identified. Co Founder And Chairman sections are submitted as follows: . A1: Polyp with respect to defect and proximal mucosal margin. A2: Co Founder And Chairman cecum. A3: Co Founder And Chairman cross-sections of appendix, including distal bisected tip. (THEO:[id number]) A4-A7: Remaining sections of vermiform appendix and orange-inked tissue. (:[id number]) . . /MRV 09/10/2021 1221 Local . 02 Microscopic: . Immunohistochemical stains were performed on block A3 in order to characterize cell of interest. All control stains showed appropriate reactivity. . Result: PAX8: Negative. SATB2: Positive. . Interpretation: This limited immunophenotype is compatible with colonic origin. . * This test was developed and its performance characteristics determined by [facility]. It has not been cleared or approved by the U.S. Food and Drug Administration. The FDA has determined that such clearance or approval is not necessary. This test is used for clinical purposes. It should not be regarded as investigational or for research. . 02 Pathologist provided ICD-10: D37.3 . 02 CPT . 287676, K65113, H90221 Specimen Comment: A courtesy copy of this report has been sent to [phone] Performed at: 01 [facility] [address] [facility], [place], [place] [id number] MD Roddy Saldivar MD Phone: [phone] Performed at: 02 [facility] [place] [id number] [place] [id number] MD Janna Clemens MD Phone: [phone]
[2021-09-01] MEDS: LACTATED RINGERS 1,000 ML 100 ML IV ×3 (09:50→14:48)
[2021-09-01] MEDS: ONDANSETRON 4 MG/2 ML INJ IV ×2 (10:10→16:21)
[2021-09-01] MEDS: SCOPOLAMINE 1 PATCH TOP (10:10)
--- NOTE | 2021-09-01 10:14 | SUR.PREOP ---
Spoke with Dr Solis in OR #2. Pt with nausea and vomiting since yesterday after pre-op antibiotics. Received 4mg zofran ODT in ED this am. Still 6/10 on nausea scale. Has received 500ml of LR IV. Hx of severe PONV. See new orders.
--- NOTE | 2021-09-01 11:21 | PM.PREOP ---
Pre-operative Note Interval Note History & Physical reviewed/Exam performed by Physician: Yes Changes to H&P: No
[2021-09-01] MEDS: metroNIDAZOLE 500 MG/100 ML PIGGYBACK 100 MG IV (12:00)
[2021-09-01] MEDS: levoFLOXacin 500 MG/100 ML PIGGYBACK 100 MG IV (12:00)
--- NOTE | 2021-09-01 12:08 | SUR.PREOP ---
1115 Dr Bull notified of Levofloxacin and Ondasteron contraindication from JUN.
[2021-09-01] MEDS: BUPIVACAINE 0.25% (PF) VIAL 30 ML INJ (12:15)
--- NOTE | 2021-09-01 12:26 | SUR.OPER ---
Supine on padded OR bed, head on pillow, arms secured on padded arm boards at <90 degrees abduction, legs uncrossed, safety belt at thigh, gel pad under heels.
--- NOTE | 2021-09-01 12:27 | SUR.OPER ---
Supine on padded OR bed, head on pillow, right arm secured on padded arm board at <90 degrees abduction left arm tucked with gel pad and drawsheet, legs uncrossed, safety belt at thigh, gel pad under heels.
--- NOTE | 2021-09-01 13:29 | P.OP_ITS ---
Operative Date/Time/Diagnoses Date of procedure: 09/01/21 Time of procedure: 13:29 Pre-op diagnosis: Sessile serrated polyp of cecum Post-op diagnosis: same Procedure & Clinicians Procedure: Laparoscopic partial cectomy Same procedure as scheduled: Yes Indications: 66-year-old woman with a serrated sessile polyp of the cecum within the appen diceal orifice Surgeon: Marlon Bull Click Yes if Unassisted: Yes Anesthesia Type: General Operative Notes Findings: 5 mm polyp within the appendicieal orifice Specimen(s): other (cectomy) Estimated Blood Loss (mL): 20 Procedure in detail: Patient was brought to the operating room placed supine on the table. Bilateral lower extremity compression devices were applied. Anesthesia was induced and they intubated with an endotracheal tube. They received 3.375 g of Zosyn prior to skin incision. The left arm was tucked and appropriately padded. They were prepped and draped in sterile fashion. Time-out was performed. An infraumbilical incision was made the umbilical stalk was grasped and elevated and incision was made and the abdomen was entered atraumatically. A 12 mm balloon trocar was then placed through the incision and pneumoperitoneum of 14 mm Hg was established. The scope was then inserted and the abdomen inspected, there was no evidence of injury upon entry. Two 5 mm ports were placed under direct visualization, one in the left lower quadrant and second in the lower midline. A thorough laparoscopic evaluation was performed inspecting all four quadrants. The patient was then tilted right side up. The small bowel was then swept to the upper aspect of the abdomen. The tenie were followed to the base of the cecum where the appendix was identified. The cecum was mobilized medially by incising the white line of Toldt. The appendix was was mobilized from its lateral attachments. The appendix was grasped and a window within the mesentery was made at the base of the appendix using the [place] dissector with care to avoid injuring the cecum. The mesoappendix was then divided using the ligature. The mesenteric staple line was inspected for hemostasis. The terminal ileum and the appendix were in very close proximity. Therefore the umbilical incision was extended slightly an extra small sang wound protector was placed. The appendix with a portion of the cecum was resected using a Endo TOMMY stapler blue 60 mm x 2. The staple line was inspected it was hemostatic and without leak. The specimen was opened on the back table there does appear to be a small polyp at the appendiceal orifice. The 5 mm ports were then removed under direct visualization. The umbilical fascial incision was closed with 0 Vicryl. The skin wounds were irrigated and closed with 4-0 Monocryl followed by the application of Dermabond. Sponge instrument count at the end of the operation was correct. The patient tolerated procedure well was extubated and transferred to the postoperative care unit in stable condition. Complications: none Post-operative Condition: stable Disposition: same day surgery
[2021-09-01] MEDS: BENZOCAINE/MENTHOL 1 LOZ PKT 1 EACH PO (14:47)
--- NOTE | 2021-09-01 15:00 | SUR.PHASEII ---
1415 Dr Solis to bedside to check on patient. Pt with postnasal drip causing cough in throat. See order for Cepacol. NO difficulty breathing or SOB>
--- NOTE | 2021-09-01 15:53 | SUR.PHASEII ---
Dr Bull in to see patient.
== END 2021-09-01 16:44 | disposition home or self-care (01) | DRG 331 ==
PROVIDERS: Admitting Provider Surgery; PCP Internal Medicine; Referring Provider Surgery; Visit Provider Surgery
PROC: 0DTJ4ZZ Resection of Appendix, Percutaneous Endoscopic Approach (ICD-10-PCS; CPT 44970; principal; 2021-09-01 11:15)
DX: C18.1 Malignant neoplasm of appendix (principal); R11.2 Nausea with vomiting, unspecified; Z20.822 Contact with and (suspected) exposure to COVID-19
CPT/HCPCS: 44204; 87635; 99282; 99283; C9803; G0378; G0379; J1956; J2250; J2405; J2704; J3010

== ENCOUNTER → 2021-10-15 12:01 | Outpatient (CLI) | payer MEDICARE, SELFPAY ==
[2021-10-15 14:05] LABS: Appearance Urine UA CLEAR; Bilirubin Urine UA NEGATIVE (NEGATIVE); Color Urine UA YELLOW; Glucose Urine UA NEGATIVE (Negative); Ketones Urine UA NEGATIVE (NEGATIVE); Leukocyte Esterase Urine UA NEGATIVE (NEGATIVE); Nitrite Urine UA NEGATIVE (Negative); Occult Blood Urine UA 2+ (Negative); Protein Urine UA NEGATIVE (Negative); Specific Gravity Urine UA <=1.005 (1.000-1.035); Urobilinogen Urine UA 0.2 E.U./dL (0.2)
[2021-10-15 14:12] LABS: Bacteria Urine Few (2-10); Culture Indicated Urine Cult Not Indicated; RBC Urine 1-5/HPF (0-5/HPF); Squamous Epithelial Cell Urine 1-5 /HPF (0-5/HPF); WBC Urine 0-1/HPF (0-5/HPF)
== END ==
PROVIDERS: PCP Internal Medicine; Referring Provider Internal Medicine; Visit Provider Internal Medicine
DX: R30.0 Dysuria (principal)
CPT/HCPCS: 81001

== ENCOUNTER → 2022-02-12 11:33 | Outpatient (CLI) | payer MEDICARE, SELFPAY ==
--- NOTE | 2022-02-12 11:35 | DI.MG.S_ITS ---
BILATERAL DIGITAL SCREENING MAMMOGRAM 3D/2D WITH CAD: 02/12/2022 CLINICAL: Routine screening. Family history of breast cancer. Comparison is made to exams dated: 02/05/2021 mammogram - [facility], 09/28/2017 mammogram, and 06/25/2015 mammogram - outside facility. There are scattered areas of fibroglandular density in both breasts (category b / 25%-50% glandular tissue). Current study was also evaluated with a Computer Aided Detection (CAD) system. No significant masses, calcifications, or other findings are seen in either breast. There has been no significant interval change. IMPRESSION: NEGATIVE There is no mammographic evidence of malignancy. A 1 year screening mammogram is recommended. Based on the Tyrer Cuzick model (a risk assessment model) the patient's lifetime risk is 8.1% and her 10 year risk is 4.5%. According to the ACR, ACS, and NCCN guidelines, an annual breast MRI exam along with mammogram is recommended if the patient's lifetime risk is 20% or greater. This exam was interpreted at Station ID: [id number]. NOTE: For mammograms, a report in lay terms will be sent to the patient. Approximately 15% of breast malignancies will not be visualized mammographically. In the management of a palpable breast mass, a negative mammogram must not discourage biopsy of a clinically suspicious lesion. Electronically Signed By: Marcos bowers/china:02/12/2022 12:41:54 letter sent: Normal Exam ACR BI-RADS Category 1: Negative 3341F
== END ==
PROVIDERS: PCP Internal Medicine; Referring Provider Internal Medicine; Visit Provider Internal Medicine
DX: Z12.31 Encounter for screening mammogram for malignant neoplasm of breast (principal); Z80.3 Family history of malignant neoplasm of breast
CPT/HCPCS: 77063; 77067

== ENCOUNTER → 2022-02-21 15:28 | Outpatient (CLI) | payer MEDICARE, SELFPAY ==
[2022-02-21 16:46] LABS: Add Manual Diff / Slide Review NO; Basophils Absolute Auto 0 /uL (0-100); Basophils Percent Auto 0.4 % (0-2); Eosinophils Absolute Auto 100 /uL (0-450); Eosinophils Percent Auto 2.5 % (2-4); Hematocrit 40.4 % (36-46); Lymphocytes Absolute Auto 1900 /uL (1100-4500); Lymphocytes Percent Auto 34.4 % (25-40); Mean Corpuscular HGB Conc 34.6 % (30-36); Mean Corpuscular Hemoglobin 32.7 PG (26-34); Mean Corpuscular Volume 94.5 fL (80-100); Monocytes Absolute Auto 500 /uL (0-900); Monocytes Percent Auto 9.4 % (3-14); Neutrophils Absolute Auto 2900 /uL (1500-7000); Neutrophils Percent Auto 53.3 % (50-75); Platelet Count 251 X10^3/uL (150-400); Red Blood Cell Count 4.28 X10^6/uL (4.0-5.2); Red Cell Distribution Width 12.9 % (11.6-14.8); White Blood Cell Count 5.5 X10^3/uL (4.5-11.0)
[2022-02-21 17:43] LABS: Alanine Aminotransferase 19 IU/L (<35); Albumin 4.2 g/dL (3.5-5.0); Albumin Globulin Ratio 1.5 (1.0-2.8); Alkaline Phosphatase 58 U/L (38-126); Amylase 39 U/L (30-110); Aspartate Aminotransferase 20 IU/L (14-36); BUN Creatinine Ratio 18.9 (6-22); Bilirubin Total 0.5 mg/dL (0.2-1.3); Blood Urea Nitrogen 14 mg/dL (7-17); Calcium 8.9 mg/dL (8.4-10.2); Carbon Dioxide 30 mmol/L (22-32); Chloride 102 mmol/L (98-107); Estimated Glomerular Filt Rate > 60 mL/min (>60); Globulin 2.8 g/dL (1.7-4.1); Glucose 85 mg/dL (80-110); HEMOLYSIS < 15 (0-50); Lipase 52 U/L (23-300); Potassium 3.9 mmol/L (3.4-5.1); Sodium 139 mmol/L (137-145)
== END ==
PROVIDERS: PCP Internal Medicine; Referring Provider Internal Medicine; Visit Provider Internal Medicine
DX: R10.11 Right upper quadrant pain (principal)
CPT/HCPCS: 36415; 80053; 82150; 83690; 85025

== ENCOUNTER → 2022-02-22 06:51 | Outpatient (CLI) | payer MEDICARE, SELFPAY ==
--- NOTE | 2022-02-22 09:12 | DI.CT.S_ITS ---
PROCEDURE: CT ABDOMEN PELVIS W CON INDICATIONS: right upper quad pain TECHNIQUE: After the administration of oral and intravenous contrast, axial sections were acquired from the lung bases to the pubic symphysis. Coronal and sagittal reformats were performed. For radiation dose reduction, the following was used: automated exposure control, adjustment of mA and/or kV according to patient size. COMPARISON:[facility], CT, CT ABDOMEN PELVIS W CON, 08/19/2021, 12:24. FINDINGS: Image quality: Adequate. Lung bases: No pleural effusion. ABDOMEN: Liver: Few scattered hepatic hypodensities present that are too small to characterize but are not significantly changed. Gallbladder: Surgically absent. Biliary ducts: Unremarkable. Pancreas: Unremarkable. Spleen: Unremarkable. Adrenal Glands: Unremarkable. Kidneys and Ureters: No hydronephrosis. Areas of scarring at the right kidney redemonstrated. Stomach and Bowel: No bowel obstruction. The cecum is present at the right upper quadrant of the abdomen as before. Possible wall thickening of the ascending colon and hepatic flexure versus artifact from underdistention. Staple line at the cecal tip, possible prior appendectomy. Peritoneum: No abnormal intraperitoneal fluid. No free air. Abdominal Nodes: No retroperitoneal or mesenteric adenopathy by size criteria. Vessels: Aorta and inferior vena cava are normal in size. PELVIS: Pelvic Organs: Unremarkable. Bladder: Unremarkable. Pelvic Nodes: No enlarged lymph nodes. Bones: Multilevel degenerative change of the visualized spine. IMPRESSION: 1. Possible wall thickening of the ascending colon and hepatic flexure versus artifact from underdistention. The finding raises the possibility of an infectious or inflammatory colitis. 2. Otherwise, no potential acute abnormality identified within the abdomen or pelvis. Dictated by: Ted Newton M.D. on 02/22/2022 at 10:15 Approved by: Ted Newton M.D. on 02/22/2022 at 10:33
== END ==
PROVIDERS: PCP Internal Medicine; Referring Provider Internal Medicine; Visit Provider Internal Medicine
DX: R10.11 Right upper quadrant pain (principal)
CPT/HCPCS: 74177

== ENCOUNTER → 2022-04-04 15:12 | Outpatient (CLI) | payer MEDICARE, SELFPAY ==
[2022-04-06 07:09] LABS: Candida species Negative (Negative); Gardnerella vaginalis Negative (Negative); Trichomoas vaginalis Negative (Negative)
== END ==
PROVIDERS: PCP Internal Medicine; Visit Provider Physician Assistant Medical
DX: N89.8 Other specified noninflammatory disorders of vagina (principal)
CPT/HCPCS: 87480; 87510; 87660

== ENCOUNTER → 2022-08-19 16:02 | Outpatient (CLI) | payer MEDICARE, SELFPAY ==
[2022-08-19 17:42] LABS: Hematocrit 43.2 % (36-46); Hemoglobin 15.1 g/dL (12.0-16.0); Mean Corpuscular HGB Conc 35.1 % (30-36); Platelet Count 278 X10^3/uL (150-400); Red Blood Cell Count 4.59 X10^6/uL (4.0-5.2); Red Cell Distribution Width 12.9 % (11.6-14.8); White Blood Cell Count 7.7 X10^3/uL (4.5-11.0)
[2022-08-19 17:47] LABS: Alanine Aminotransferase 17 IU/L (<35); Albumin 4.4 g/dL (3.5-5.0); Albumin Globulin Ratio 1.6 (1.0-2.8); Alkaline Phosphatase 63 U/L (38-126); Aspartate Aminotransferase 22 IU/L (14-36); Bilirubin Total 0.8 mg/dL (0.2-1.3); Blood Urea Nitrogen 14 mg/dL (7-17); Calcium 9.5 mg/dL (8.4-10.2); Carbon Dioxide 27 mmol/L (22-32); Chloride 101 mmol/L (98-107); Cholesterol 227 mg/dL (140-199); Estimated Glomerular Filt Rate > 60 mL/min (>60); Globulin 2.7 g/dL (1.7-4.1); Glucose 112 mg/dL (80-110); HDL Cholesterol 67 mg/dL (40-60); HEMOLYSIS < 15 (0-50); LDL Cholesterol Calculated 129 mg/dL (<100); Potassium 4.1 mmol/L (3.4-5.1); Sodium 137 mmol/L (137-145); Total Protein 7.1 g/dL (6.3-8.2); Triglycerides 154 mg/dL (35-150)
[2022-08-19 18:15] LABS: TSH w/ Reflex to FT4 1.19 uIU/mL (0.47-4.68)
== END ==
PROVIDERS: PCP Internal Medicine; Referring Provider Internal Medicine; Visit Provider Internal Medicine
DX: E78.2 Mixed hyperlipidemia (principal); B19.20 Unspecified viral hepatitis C without hepatic coma; N95.1 Menopausal and female climacteric states; Z85.09 Personal history of malignant neoplasm of other digestive organs
CPT/HCPCS: 36415; 80053; 80061; 84443; 85027; 87522

== ENCOUNTER → 2022-11-08 12:26 | Outpatient (CLI) | payer MEDICARE, SELFPAY ==
--- NOTE | 2022-11-08 12:27 | DI.MRI.S_ITS ---
BREAST MRI OF BOTH BREASTS: 11/08/2022 CLINICAL: Family History of Malignant neoplasm of breast. PROCEDURE: MR BREAST BI WO/W CON INDICATIONS: 6 month FU, dense breast, family hx breast cancer TECHNIQUE: The patient was placed prone in a dedicated breast imaging coil. Precontrast axial STIR and 3D FLASH without fat saturation sequences were obtained. Both before and after bolus injection of contrast, sequential 1-minute axial 3D FLASH with fat saturation sequences for 3 time points, with subtraction images and maximum intensity projections (MIP's) generated. Delayed sagittal FLASH images with fat saturation were also obtained. Computer-aided detection, including computer algorithm analysis of MRI image data for lesion detection and characterization, pharmacokinetic analysis, with further physician review for interpretation, was performed. COMPARISON: None. FINDINGS: Image quality: Excellent. There is minimal background parenchymal enhancement. Right breast: No suspicious enhancement or mass lesions. Left breast: No suspicious enhancement or mass lesions. Miscellaneous: No axillary or intramammary adenopathy. Limited visualization of the heart, mediastinum, lungs and upper abdomen are unremarkable. IMPRESSION: NEGATIVE Negative breast MRI. Return to annual mammogram screening schedule is recommended. Future imaging is recommended as follows: 02/13/2023 screening mammogram. This exam was interpreted at Station ID: [id number]. Electronically Signed By: Amanda mccurdy/:11/08/2022 17:33:58 letter sent: Normal Exam ACR BI-RADS Category 1: Negative 3341F
== END ==
PROVIDERS: PCP Internal Medicine; Referring Provider Physician Assistant Medical; Visit Provider Physician Assistant Medical
DX: R92.2 Inconclusive mammogram (principal); Z80.3 Family history of malignant neoplasm of breast
CPT/HCPCS: 77049; A9579

== ENCOUNTER → 2023-02-01 09:48 | Outpatient (CLI) | payer MEDICARE, SELFPAY ==
--- NOTE | 2023-02-01 09:49 | DI.RAD.S_ITS ---
PROCEDURE: XR FOOT LT MIN 3V INDICATIONS: left 2nd toe pain TECHNIQUE: 3 views of the foot were acquired. COMPARISON: None. FINDINGS: Bones: Mild 1st MTP degenerative changes. No displaced fracture or dislocation. Soft tissues: Plantar enthesopathy. IMPRESSION: No acute osseous abnormality. If there is high concern for further derangement, consider MRI evaluation. Dictated by: Renato Corrigan M.D. on 02/01/2023 at 13:05 Approved by: Renato Corrigan M.D. on 02/01/2023 at 13:06
== END ==
PROVIDERS: PCP Internal Medicine; Referring Provider Internal Medicine; Visit Provider Internal Medicine
DX: M79.675 Pain in left toe(s) (principal); M15.9 Polyosteoarthritis, unspecified
CPT/HCPCS: 73630

== ENCOUNTER → 2023-03-27 12:04 | Outpatient (CLI) | payer MEDICARE, SELFPAY ==
--- NOTE | 2023-03-27 | DI.RAD.S_ITS ---
PROCEDURE: XR FOOT LT 2V INDICATIONS: PAINFUL LUMP LEFT FOOT TECHNIQUE: 3 views of the foot were acquired. COMPARISON: None. FINDINGS: Bones: No fractures or dislocations. No suspicious bony lesions. Mild osteoarthritic changes in ankle and foot. Calcaneal spurring. Soft tissues: No tibiotalar joint effusion. Achilles tendon appears normal. IMPRESSION: 1. No acute bony abnormality. 2. Mild osteoarthritis. 3. Calcaneal spurring. Dictated by: Rosetta Madison M.D. on 03/27/2023 at 16:37 Approved by: Rosetta Madison M.D. on 03/27/2023 at 16:39
== END ==
PROVIDERS: PCP Internal Medicine; Referring Provider Obstetrics & Gynecology; Visit Provider Obstetrics & Gynecology
DX: M19.072 Primary osteoarthritis, left ankle and foot (principal); M77.32 Calcaneal spur, left foot; M79.672 Pain in left foot
CPT/HCPCS: 73620; 73630

== ENCOUNTER → 2023-05-04 14:11 | Outpatient (CLI) | payer MEDICARE, SELFPAY ==
--- NOTE | 2023-05-04 14:12 | DI.MG.S_ITS ---
BILATERAL DIGITAL SCREENING MAMMOGRAM 3D/2D WITH CAD: 05/04/2023 CLINICAL: Routine screening. Family history of breast cancer. Comparison is made to exams dated: 02/12/2022 mammogram, 02/05/2021 mammogram - [facility], and 09/28/2017 mammogram - outside facility. There are scattered areas of fibroglandular density in both breasts (category b / 25%-50% glandular tissue). Current study was also evaluated with a Computer Aided Detection (CAD) system. No significant masses, calcifications, or other findings are seen in either breast. There has been no significant interval change. IMPRESSION: NEGATIVE There is no mammographic evidence of malignancy. A 1 year screening mammogram is recommended. Based on the Tyrer Cuzick model (a risk assessment model) the patient's lifetime risk is 7.7% and her 10 year risk is 4.5%. According to the ACR, ACS, and NCCN guidelines, an annual breast MRI exam along with mammogram is recommended if the patient's lifetime risk is 20% or greater. This exam was interpreted at Station ID: [id number]. NOTE: For mammograms, a report in lay terms will be sent to the patient. Approximately 15% of breast malignancies will not be visualized mammographically. In the management of a palpable breast mass, a negative mammogram must not discourage biopsy of a clinically suspicious lesion. Electronically Signed By: Ted rivera/china:05/04/2023 15:29:48 letter sent: Normal Exam ACR BI-RADS Category 1: Negative 3341F
== END ==
PROVIDERS: PCP Internal Medicine; Referring Provider Obstetrics & Gynecology; Visit Provider Obstetrics & Gynecology
DX: Z12.31 Encounter for screening mammogram for malignant neoplasm of breast (principal); Z80.3 Family history of malignant neoplasm of breast; R92.323 Mammographic fibroglandular density, bilateral breasts
CPT/HCPCS: 77063; 77067

== ENCOUNTER → 2023-10-31 14:09 | Outpatient (CLI) | payer MEDICARE, SELFPAY ==
--- NOTE | 2023-10-31 14:09 | DI.US.S_ITS ---
ULTRASOUND OF RIGHT AXILLA: 10/31/2023 CLINICAL: Palpable right axillary lump and pain. Comparison is made to exams dated: 05/04/2023 mammogram, 11/08/2022 breast MRI, 02/12/2022 mammogram, 02/05/2021 mammogram - [facility], 09/28/2017 mammogram, and 06/25/2015 mammogram - outside facility. Real-time ultrasound of the right axilla was performed. Lo scale images of the real-time examination were reviewed. There are normal lymph nodes in the right axilla that correlate with clinical concern and palpable abnormalities. No other significant abnormalities were seen sonographically in the right axilla. IMPRESSION: BENIGN There is no sonographic evidence of malignancy. Palpable areas of concern in the right axilla correlate with normal appearing axillary lymph nodes which are benign. Return to annual mammogram screening schedule is recommended. Next screening mammogram due approximately April 2024. Findings and recommendations were conveyed to the patient during today's evaluation. This exam was interpreted at Station ID: [id number]. Electronically Signed By: Marcos Woodruff M.D. at/:10/31/2023 15:57:36 letter sent: Clinical Evaluation Ultrasound BI-RADS: 2 Benign
== END ==
PROVIDERS: PCP Internal Medicine; Referring Provider Student in an Organized Health Care Education/Training Program; Visit Provider Student in an Organized Health Care Education/Training Program
DX: R22.30 Localized swelling, mass and lump, unspecified upper limb (principal)
CPT/HCPCS: 76882

== ENCOUNTER → 2024-01-25 11:05 | Outpatient (CLI) | payer MEDICARE, SELFPAY ==
[2024-01-25 11:59] LABS: Influenza A - CEPHEID Flu A NEGATIVE (NEGATIVE); Influenza B - CEPHEID Flu B NEGATIVE (NEGATIVE); Respiratory Syncytial Virus Negative (Negative)
[2024-01-25 12:27] LABS: COVID-19 CEPHEID 4-PLEX PCR Negative (Negative)
== END ==
PROVIDERS: PCP Internal Medicine; Referring Provider Nurse Practitioner Family; Visit Provider Nurse Practitioner Family
DX: R53.83 Other fatigue (principal); R53.1 Weakness
CPT/HCPCS: 0241U

== ENCOUNTER 2024-03-05 12:10 | Emergency (ER) | payer MEDICARE, SELFPAY ==
[2024-03-05] VITALS (10 sets, daily range): BP systolic 139–196; BP diastolic 63–83; PULSE 56–88; RESP 16–28; TEMP 36.4; O2SAT 93–98; BMI 24.6
--- NOTE | 2024-03-05 12:30 | DI.RAD.S_ITS ---
PROCEDURE: XR CHEST 1V INDICATIONS: chest pain TECHNIQUE: One view of the chest was acquired. COMPARISON: [facility], CR, XR CHEST 2V, 10/16/2019, 15:04. FINDINGS: Surgical changes and devices: None. Lungs and pleura: No dense airspace disease or pleural effusions. Mediastinum: Normal heart size Bones and chest wall: Degenerative changes IMPRESSION: No acute radiographic abnormality on this single view study Dictated by: Renato Corrigan M.D. on 03/05/2024 at 13:08 Approved by: Renato Corrigan M.D. on 03/05/2024 at 13:09
--- NOTE | 2024-03-05 12:40 | EKG_ITS ---
[facility] [address] [place] [address] Test Date: 2024-03-05 Pat Name: Sayra Delgado Department: [facility] Room: Gender: Female Peritoneal Dialysis Registered Nurse: TARAS : 1955 Requested By: Order Number: [id number] Reading MD: Nixon Guzmán MD Measurements Intervals [place] Rate: 56 P: 29 UT: 136 QRS: -10 QRSD: 84 T: 54 QT: 488 QTc: 470 Interpretive Statements Sinus bradycardia Low voltage QRS Cannot rule out Anterior infarct , age undetermined Electronically Signed On 03-05-2024 15:33:07 PST by Nixon Guzmán MD
[2024-03-05 12:44] LABS: Add Manual Diff / Slide Review NO; Basophils Absolute Auto 0 /uL (0-100); Basophils Percent Auto 0.4 % (0-2); Eosinophils Absolute Auto 100 /uL (0-450); Eosinophils Percent Auto 1.6 % (2-4); Hematocrit 45.5 % (36-46); Hemoglobin 15.8 g/dL (12.0-16.0); Lymphocytes Absolute Auto 2300 /uL (1100-4500); Lymphocytes Percent Auto 38.9 % (25-40); Mean Corpuscular HGB Conc 34.6 % (30-36); Mean Corpuscular Hemoglobin 32.9 PG (26-34); Mean Corpuscular Volume 94.9 fL (80-100); Monocytes Absolute Auto 600 /uL (0-900); Monocytes Percent Auto 10.2 % (3-14); Neutrophils Absolute Auto 2900 /uL (1500-7000); Neutrophils Percent Auto 48.9 % (50-75); Platelet Count 269 X10^3/uL (150-400); Red Blood Cell Count 4.79 X10^6/uL (4.0-5.2); White Blood Cell Count 5.8 X10^3/uL (4.5-11.0)
[2024-03-05 12:50] LABS: INR 0.9 (0.9-1.3); Prothrombin Time 10.7 SECONDS (9.4-12.5)
[2024-03-05 12:53] LABS: Alanine Aminotransferase 20 IU/L (<35); Albumin 4.5 g/dL (3.5-5.0); Albumin Globulin Ratio 1.5 (1.0-2.8); Alkaline Phosphatase 73 U/L (38-126); Aspartate Aminotransferase 25 IU/L (14-36); Bilirubin Total 1.1 mg/dL (0.2-1.3); Blood Urea Nitrogen 12 mg/dL (7-17); Calcium 9.1 mg/dL (8.4-10.2); Carbon Dioxide 27 mmol/L (22-32); Chloride 102 mmol/L (98-107); Creatine Kinase 27 U/L (30-135); Estimated Glomerular Filt Rate > 60 mL/min (>60); Globulin 3.1 g/dL (1.7-4.1); Glucose 112 mg/dL (80-110); HEMOLYSIS < 15 (0-50); Lipase 68 U/L (23-300); PTT Partial Thromboplastin Tim 41 SECONDS (25.1-36.5); Potassium 3.8 mmol/L (3.4-5.1); Sodium 136 mmol/L (137-145); Total Protein 7.6 g/dL (6.3-8.2)
[2024-03-05 13:05] LABS: NT-proBNP (BNP-Adult 18+) 328 pg/mL (<125); Troponin I < 0.012 ng/mL (0.01-0.034)
--- NOTE | 2024-03-05 13:55 | DI.CT.S_ITS ---
PROCEDURE: CT HEAD/BRAIN WO CON INDICATIONS: dizziness TECHNIQUE: Noncontrast 4.5 mm thick angled axial sections acquired from the foramen magnum to the vertex, with coronal and sagittal reformats. For radiation dose reduction, the following was used: automated exposure control, adjustment of mA and/or kV according to patient size. COMPARISON: None. FINDINGS: Image quality: Diagnostic. CSF spaces: Basal cisterns are patent. No extra-axial fluid collections. The ventricles are symmetric in size and shape. Brain: No intracranial bleeds or masses. There is cerebral volume loss for age, with resultant ventricular and sulcal prominence. There are periventricular and deep white matter chronic small vessel ischemic changes. There is intracranial internal carotid artery atherosclerosis. Skull and face: Calvarium and visualized facial bones appear intact, without suspicious lesions. Sinuses: Visualized sinuses and mastoids are clear. IMPRESSION: No acute intracranial pathology. Dictated by: Desmond Avila M.D. on 03/05/2024 at 14:28 Approved by: Desmond Avila M.D. on 03/05/2024 at 14:34
--- NOTE | 2024-03-05 16:20 | ED.GENADULT ---
HPI - General Adult General Chief complaint: Dizziness Stated complaint: dizziness Time Seen by Provider: 03/05/24 13:52 Source: patient Mode of arrival: Wheelchair History of Present Illness HPI narrative: 68-year-old woman with a history of appendiceal cancer, reflux, currently on hormone replacement therapy, depression who presents complaining of dizziness. She notes she woke this morning feeling well was getting ready for a yoga class when she noticed that she was a bit dizzy. It progressed over the course of the next hour so to the point where she did not feel comfortable driving and did not go to her class. Not associated with fevers, cough, palpitations, chest pain, dyspnea. No headaches. On further questioning she notes over the last months that in her yoga class she is since that her right leg has been more weak than the left. She also notes she does have chronic sinus and seasonal allergy issues. She seems to be doing fairly well right now. Related Data Home Medications Medication Instructions Recorded Confirmed fluticasone propionate 50 1 spray intranasal DAILY 04/09/18 01/25/24 mcg/actuation nasal spray,suspension cholecalciferol (vitamin D3) 25 25 mcg PO DAILY 11/23/20 01/25/24 mcg (1,000 unit) capsule omeprazole 20 mg capsule,delayed 20 mg PO DAILY 01/25/24 01/25/24 release Previous Rx's Medication Instructions Recorded sertraline 50 mg tablet 100 mg (2 x 50 mg) PO DAILY #180 05/18/23 tabs estradiol 2 mg (7.5 mcg/24 hour) 1 vag ring vaginal [id number] #1 ea 12/19/23 vaginal ring (Estring) estradiol 0.05 mg/24 hr semiweekly 1 patch topical 2XW #24 patches 01/18/24 transdermal patch progesterone micronized 100 mg 100 mg PO QAM #90 caps 01/18/24 capsule meclizine 25 mg tablet 25 mg PO TID PRN dizziness #20 tabs 03/05/24 ondansetron 4 mg disintegrating 4 mg PO Q8H PRN nausea and 03/05/24 tablet vomiting #10 tabs Allergies Allergy/AdvReac Type Severity Reaction Status Date / Time Penicillins Allergy Severe rash, Verified 01/25/24 10:21 swelling cephalexin Allergy Intermediate Rash Verified 01/25/24 10:21 Cephalosporins Allergy Intermediate Rash Verified 01/25/24 10:21 lactase [From Dairy Aid] Allergy Intermediate ITCHING Verified 01/25/24 10:21 gluten AdvReac Intermediate Abdominal Verified 01/25/24 10:21 pain, diarrhea Milk Containing Products AdvReac Verified 01/25/24 10:21 (Dairy) Review of Systems Review of Systems Narrative: Pertinent positive and negative findings as per HPI Patient History Medical History (Updated 03/05/24 @ 16:38 by Yamilex Hooker MD) History of adenomatous polyp of colon Primary osteoarthritis involving multiple joints Allergic rhinitis Menopausal syndrome History of malignant neoplasm of appendix Depression, major, recurrent Mixed hyperlipidemia Low grade mucinous neoplasm of appendix Hematuria Kidney stones Arthritis Heart murmur IBS (irritable bowel syndrome) Gluten intolerance Hepatitis C test positive H/O renal calculi Surgical History S/P total knee arthroplasty (~2015) S/P cholecystectomy S/P tubal ligation (~1979) Family History Sister Cancer Sister Cancer Social History details: (Vasyl), 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 Able to give a complete and coherent history. Well-nourished well-developed HEENT: Moist mucous membranes, normal sclera with reactive pupils, nystagmus appreciated with provocative maneuvers for BPV turning her head to the right. Respiratory: Lungs are clear to auscultation, no wheezing no rales no rhonchi. Full and symmetrical air movement Cardiac: Regular rate and rhythm no murmurs no bruits Abdomen: Soft, nontender, good bowel tones, no flank pain Skin: Warm and dry, no rashes Neurologic: Grossly neurologically intact with no obvious asymmetries or abnormalities. NIH equals 0 Extremities: No trauma, well perfused Psych: Cooperative, appropriate insight and affect Course Orders Ordered: ED Orders 03/05/24 12:30 XR chest 1V Stat EKG-12 Lead Stat 03/05/24 12:34 Complete Blood Count AUTO DIFF Stat Comprehensive Metabolic Panel Stat Lipase Stat Magnesium Stat NT-proBNP (BNP-Adult 18+) Stat PTT Partial Thromboplastin Justice Stat Prothrombin Time INR Stat Troponin & CK Cardiac Panel Stat 03/05/24 13:55 CT head/brain wo con Stat Discontinued Medications Aspirin (Aspirin 81 Mg Chew Tab) 324 mg PO NOW ONE Stop: 03/05/24 12:31 Last Admin: 03/05/24 13:57 Dose: Not Given Documented By: TRU Vital Signs Vital signs: Vital Signs - 8 hr 03/05/24 12:19 03/05/24 13:41 03/05/24 13:41 Temperature 97.5 F L Pulse Rate 67 65 Respiratory Rate 16 28 H Blood Pressure 196/81 H 162/83 H Pulse Oximetry 97 98 Oxygen Delivery Method Room Air 03/05/24 14:10 03/05/24 14:11 03/05/24 14:11 Temperature Pulse Rate 77 64 Respiratory Rate 18 Blood Pressure 139/63 Pulse Oximetry 94 98 Oxygen Delivery Method 03/05/24 14:30 03/05/24 14:30 03/05/24 15:00 Temperature Pulse Rate 56 L 58 L Respiratory Rate 17 23 Blood Pressure 154/73 H Pulse Oximetry 97 96 Oxygen Delivery Method 03/05/24 15:00 03/05/24 15:30 Temperature Pulse Rate 60 Respiratory Rate 20 Blood Pressure 148/83 H Pulse Oximetry 97 Oxygen Delivery Method Medical Decision Making Lab Data 03/05/24 12:34 03/05/24 12:34 Labs: Lab Results 03/05/24 Range/Units 12:34 WBC 5.8 (4.5-11.0) X10^3/uL RBC 4.79 (4.0-5.2) X10^6/uL Hgb 15.8 (12.0-16.0) g/dL Hct 45.5 (36-46) % MCV 94.9 (80-100) fL MCH 32.9 (26-34) PG MCHC 34.6 (30-36) % RDW 13.0 (11.6-14.8) % Plt Count 269 (150-400) X10^3/uL Neut % (Auto) 48.9 L (50-75) % Lymph % (Auto) 38.9 (25-40) % Pope % (Auto) 10.2 (3-14) % Eos % (Auto) 1.6 L (2-4) % Baso % (Auto) 0.4 (0-2) % Neut # (Auto) 2900 (4624-2984) /uL Lymph # (Auto) 2300 (6519-3374) /uL Pope # (Auto) 600 (0-900) /uL Eos # (Auto) 100 (0-450) /uL Baso # (Auto) 0 (0-100) /uL PT 10.7 (9.4-12.5) SECONDS INR 0.9 (0.9-1.3) APTT 41 H (25.1-36.5) SECONDS Sodium 136 L (137-145) mmol/L Potassium 3.8 (3.4-5.1) mmol/L Chloride 102 (98-107) mmol/L Carbon Dioxide 27 (22-32) mmol/L BUN 12 (7-17) mg/dL Creatinine 0.75 (0.52-1.04) mg/dL Estimated GFR > 60 (>60) mL/min BUN/Creatinine Ratio 16.0 (6-22) Glucose 112 H (80-110) mg/dL Calcium 9.1 (8.4-10.2) mg/dL Magnesium 2.0 (1.6-2.3) mg/dL Total Bilirubin 1.1 (0.2-1.3) mg/dL AST 25 (14-36) IU/L ALT 20 (<35) IU/L Alkaline Phosphatase 73 (38-126) U/L Total Creatine Kinase 27 L (30-135) U/L Troponin I < 0.012 (0.01-0.034) ng/mL NT-Pro-B Natriuret Pep 328 H (<125) pg/mL Total Protein 7.6 (6.3-8.2) g/dL Albumin 4.5 (3.5-5.0) g/dL Globulin 3.1 (1.7-4.1) g/dL Albumin/Globulin Ratio 1.5 (1.0-2.8) Lipase 68 (23-300) U/L MDM Narrative Medical decision making narrative: CC: Vertigo starting at starting this morning Complicating co-morbidities: No prior history of vertigo, she does have seasonal allergies and sinus issues not currently bothering her, no history of hypertension Data collected from: patient Differential considered: BPV, vestibular neuritis, orthostatic hypotension, viral syndrome, stroke Exam documented above, pertinent findings include: Exam is relatively benign. She does have nystagmus with provocative maneuvers particularly to the right side. Lab Test results independently reviewed as above. Pertinent findings: CBC is unremarkable Chemistries are reassuring ProBNP is minimally elevated at 320 Independently reviewed EKG: EKG shows sinus Tai at a rate of 56 with no acute ischemic changes Imaging studies independently reviewed: Chest x-ray shows no significant pathology CT scan of the head is otherwise unremarkable Treatments: Kerrie maneuver to the right side was performed with some relief of her overall vertigo symptoms Discussion: 68-year-old woman with acute onset of vertigo. Nystagmus with twisting her head to the right, some improvement with Kerrie maneuver. No evidence of stroke, infectious etiology orthostatic hypotension, sinus infection or alternate explanation for her symptoms at this time. She has given a dose of meclizine in the emergency department, prescriptions for meclizine Zofran if needed and suggested that she look up Kerrie maneuvers for the multiple videos and suggestions available on the Internet. Questions are answered and she is safe for discharge Discharge Plan Departure Patient Disposition: Home Clinical Impression: Benign paroxysmal positional vertigo Qualifiers: Laterality: right Qualified Code(s): H81.11 - Benign paroxysmal vertigo, right ear Instructions: DI for Vertigo Activity Restrictions/Additional Instructions: Thank you for coming into Your workup was very reassuring. We did do a CT scan of your head given the weakness that you are appreciated in the right leg. There was no evidence of stroke, masses and at this point your sinuses are looking pretty good On physical exam you do have nystagmus, eye twitching, with looking to the right side. This goes along with a diagnosis of benign positional vertigo We did an Kerrie maneuver in the ER. It did help slightly. I would recommend that you do a Google search for Kerrie maneuver, there are multiple suggestions options but he does and things to try at home. There a couple modified Kerrie maneuvers that maybe equally effective, all are worth trying. You are not going to hurt anything and it may well fix the problem For the spinning feeling if you are still having this, I would recommend meclizine. For the nausea feeling I would recommend Zofran Prescriptions were electronically transmitted to [facility] If you find that you are getting worse or develop any new symptoms, please feel free to return to the emergency department for further evaluation. Prescriptions: New meclizine 25 mg tablet 25 mg PO TID PRN (Reason: dizziness) Qty: 20 0RF ondansetron 4 mg tablet,disintegrating 4 mg PO Q8H PRN (Reason: nausea and vomiting) Qty: 10 0RF No Action sertraline 50 mg tablet 100 mg PO DAILY Qty: 180 3RF Estring 2 mg (7.5 mcg /24 hour) ring 1 vag ring vaginal [id number] Qty: 1 1RF estradiol 0.05 mg/24 hr patch semiweekly 1 patch topical 2XW Qty: 24 3RF progesterone micronized 100 mg capsule 100 mg PO QAM Qty: 90 3RF fluticasone propionate 50 mcg/actuation spray,suspension 1 spray NASAL DAILY cholecalciferol (vitamin D3) 25 mcg (1,000 unit) capsule 25 mcg PO DAILY omeprazole 20 mg capsule,delayed release(DR/EC) 20 mg PO DAILY Referrals: Nixon Guzmán MD [Primary Care Provider] - Stand Alone Forms: Patient Portal/API/Survey
[2024-03-05] MEDS: MECLIZINE HCL 12.5 MG TABLET 25 MG PO (16:47)
== END 2024-03-05 17:02 | disposition home or self-care (01) ==
PROVIDERS: Emergency Provider Emergency Medicine; PCP Internal Medicine
DX: H81.11 Benign paroxysmal vertigo, right ear (principal); R00.1 Bradycardia, unspecified; R07.9 Chest pain, unspecified
CPT/HCPCS: 36415; 70450; 71045; 80053; 82550; 83690; 83735; 83880; 84484; 85025; 85610; 85730; 93005; 93010; 99284

== ENCOUNTER → 2024-06-26 08:42 | Outpatient (CLI) | payer MEDICARE, SELFPAY ==
[2024-06-26 10:59] LABS: Cholesterol 255 mg/dL (140-199); HDL Cholesterol 64 mg/dL (40-60); LDL Cholesterol Calculated 165 mg/dL (<100); Triglycerides 132 mg/dL (35-150)
[2024-06-26 11:29] LABS: TSH w/ Reflex to FT4 2.18 uIU/mL (0.47-4.68)
== END ==
PROVIDERS: PCP Internal Medicine; Referring Provider Internal Medicine; Visit Provider Internal Medicine
DX: E78.2 Mixed hyperlipidemia (principal); E03.9 Hypothyroidism, unspecified
CPT/HCPCS: 36415; 80061; 84443

== ENCOUNTER → 2024-07-12 11:38 | Outpatient (CLI) | payer MEDICARE, SELFPAY ==
--- NOTE | 2024-07-12 11:39 | DI.MRI.S_ITS ---
PROCEDURE: MR KNEE RT WO CON INDICATIONS: internal derangement of rt knee TECHNIQUE: Noncontrast sagittal PD fast spin echo and T2 fast spin echo with fat saturation, sagittal 3-D FLASH with fat saturation; coronal T1 spin echo and PD fast spin echo with fat saturation, and axial PD fast spin echo with fat saturation through the knee. COMPARISON: [facility] [place], CR, XR KNEE 4+ VIEWS RIGHT, 07/08/2024, 14:01. FINDINGS: Image quality: Excellent. Menisci: Mild extrusion of the medial meniscus body, without tear. The lateral meniscus is unremarkable. Cruciate ligaments: The anterior and posterior cruciate ligaments appear intact. Medial structures: The medial collateral ligament appears intact. The posterior oblique ligament, semimembranosus tendon insertions, oblique popliteal ligament, and meniscocapsular junction appear intact. Visualized portions of the pes anserinus tendons appear normal. No abnormal bursal fluid. Lateral structures: The lateral collateral ligament, long and short heads of the biceps femoris tendon appear intact. The popliteus tendon appears normal; the popliteofibular ligament appears intact. The posterosuperior and anteroinferior popliteomeniscal fascicles appear intact. The arcuate and fabellofibular ligaments appear intact, on either side of the lateral inferior geniculate artery. Iliotibial band appears normal. Anterior structures: The quadriceps and patellar tendons appear intact. Patellar alignment is normal. No femoral trochlear dysplasia or ventral trochlear prominence. No edema in the infrapatellar fat pad. Bones and cartilage: Multifocal high-grade chondral fissuring of the lateral patellar facet. Multifocal high-grade chondral irregularity of the central trochlea. In the medial compartment, there is mild chondral irregularity of the weight-bearing portion of the medial femoral condyle. In the lateral compartment, there is mild chondral irregularity of the weight-bearing portion of the lateral femoral condyle. No acute fracture. No marrow edema. Joint space: Small knee effusion. Trace popliteal cyst. Popliteal vasculature is unremarkable. No intra-articular body. IMPRESSION: 1. Mild, patellofemoral compartment predominant chondrosis. 2. No meniscus tear. Dictated by: Jada Quinn M.D. on 07/12/2024 at 17:22 Approved by: Jada Quinn M.D. on 07/12/2024 at 17:31
== END ==
PROVIDERS: PCP Internal Medicine; Referring Provider Orthopaedic Surgery Foot and Ankle Surgery; Visit Provider Orthopaedic Surgery Foot and Ankle Surgery
DX: M23.91 Unspecified internal derangement of right knee (principal); M22.41 Chondromalacia patellae, right knee; M25.461 Effusion, right knee
CPT/HCPCS: 73721

== ENCOUNTER → 2024-12-27 14:09 | Outpatient (CLI) | payer MEDICARE, SELFPAY ==
--- NOTE | 2024-12-27 14:10 | DI.MG.S_ITS ---
MM screening mammo BI: 12/27/2024. BI-RADS: 1 CLINICAL: 69-year old female for bilateral screening mammogram. Tyrer-Cuzick lifetime risk of 8.0%. Current reported family history of breast cancer: sister. PRIOR EXAMS 05/04/2023, 11/08/2022, 02/12/2022, MAMMOGRAPHY TECHNIQUE: 2D and 3D (tomosynthesis) digital mammographic views obtained, with additional images as needed for full coverage. Current study was also evaluated with a Computer Aided Detection (CAD) system. DENSITY B. There are scattered areas of fibroglandular density. MAMMOGRAPHY FINDINGS Bilateral: No suspicious mass, asymmetry, microcalcification, or other abnormality seen. IMPRESSION: * No evidence of malignancy. RECOMMENDATIONS Bilateral * Annual screening mammography. OVERALL ASSESSMENT CATEGORY BI-RADS-1: Negative. [employer] [place] recommends annual screening mammography beginning at age 40 for women with average risk of breast cancer. ELECTRONICALLY SIGNED: Marcos Woodruff M.D. on 12/29/2024 at 08:37:46 PM PT Interpreting Station ID: [id number]
== END ==
LOC: MAMMO 14:09
PROVIDERS: PCP Internal Medicine; Referring Provider Internal Medicine; Visit Provider Internal Medicine
DX: Z12.31 Encounter for screening mammogram for malignant neoplasm of breast (principal); Z80.3 Family history of malignant neoplasm of breast
CPT/HCPCS: 77063; 77067

== ENCOUNTER 2025-02-17 12:14 | Emergency (ER) | payer MEDICARE, SELFPAY ==
[2025-02-17 12:21] VITALS: BP 147/66; PULSE 79; RESP 16; TEMP 36.7; O2SAT 97; BMI 24.3
--- NOTE | 2025-02-17 12:56 | DI.CT.S_ITS ---
PROCEDURE: CT HEAD/BRAIN WO CON INDICATIONS: head injury TECHNIQUE: Noncontrast 4.5 mm thick angled axial sections acquired from the foramen magnum to the vertex, with coronal and sagittal reformats. For radiation dose reduction, the following was used: automated exposure control, adjustment of mA and/or kV according to patient size. COMPARISON: [facility], CT, CT FACIAL BONES WO CON, 02/17/2025, 13:04. [facility], CT, CT HEAD/BRAIN WO CON, 03/05/2024, 14:10. FINDINGS: Image quality: Diagnostic. CSF spaces: Basal cisterns are patent. No extra-axial fluid collections. The ventricles are symmetric in size and shape. Brain: No intracranial bleeds or mass effect. There is cerebral volume loss, with resultant ventricular and sulcal prominence. There are periventricular and deep white matter chronic small vessel ischemic changes. There is intracranial internal carotid artery atherosclerosis. Skull and face: Right supraorbital hematoma. Calvarium and visualized facial bones appear intact, without suspicious lesions. Sinuses: Visualized sinuses and mastoids are clear. IMPRESSION: No acute intracranial pathology. Dictated by: Desmond Avila M.D. on 02/17/2025 at 13:15 Approved by: Desmond Avila M.D. on 02/17/2025 at 13:17
--- NOTE | 2025-02-17 12:56 | DI.CT.S_ITS ---
PROCEDURE: CT FACIAL BONES WO CON INDICATIONS: facial injury TECHNIQUE: Noncontrast 2.5 mm thick axial images acquired from the mandible through the frontal sinuses, with coronal and sagittal reformatting. For radiation dose reduction, the following was used: automated exposure control, adjustment of mA and/or kV according to patient size. COMPARISON: None. FINDINGS: Image quality: Excellent. Bones and teeth: Orbital salcedo are intact. Sinus salcedo show no fracture or deformity. Nasal bones and septum are intact. Visualized portions of the mandible demonstrate no fractures or subluxation. Zygomatic arches are intact. Pterygoid plates are intact. Visualized portions of the skull base and auditory canals are intact. Sinuses: Paranasal sinuses are aerated, without fluid levels, mucosal thickening, or mucoceles. Mastoid air cells are aerated. Soft tissues: Small right supraorbital hematoma. No enlarged lymph nodes. No soft tissue lacerations or debris. Vascular: Visualized vascular structures appear normal in the absence of contrast. Bony vascular foramina and canals are intact. IMPRESSION: No displaced facial bone fracture or mandibular fracture. Globes are intact. Dictated by: Desmond Avila M.D. on 02/17/2025 at 13:24 Approved by: Desmond Avila M.D. on 02/17/2025 at 13:25
--- NOTE | 2025-02-17 12:56 | DI.RAD.S_ITS ---
PROCEDURE: XR KNEE LT 3V INDICATIONS: knee injury TECHNIQUE: 3 views of the knee were acquired. COMPARISON: None. FINDINGS: Bones: No fractures or dislocations. No suspicious bony lesions. Soft tissues: No joint effusion. No suspicious soft tissue calcifications. IMPRESSION: No acute bony abnormality or significant effusion. Dictated by: Desmond Avila M.D. on 02/17/2025 at 13:21 Approved by: Desmond Avila M.D. on 02/17/2025 at 13:23
--- NOTE | 2025-02-17 12:57 | ED.FALL ---
HPI - Fall General Chief Complaint: Trauma Stated Complaint: Fell, hit Right side of face on concrete Time Seen by Provider: 02/17/25 12:52 Source: patient and family Mode of arrival: Ambulatory History of Present Illness HPI Narrative: This is a 69-year-old female who tripped while walking her dog suffered a mechanical fall today. She fell forward striking her face no loss of consciousness no vomiting no severe headache. Patient is not anticoagulated does not have neck pain numbness or tingling. She also complains of some pain in her left knee. Related Data Home Medications ?Medication ?Instructions ?Recorded ?Confirmed cholecalciferol (vitamin D3) 25 25 mcg PO DAILY 11/23/20 02/13/25 mcg (1,000 unit) capsule Previous Rx's ?Medication ?Instructions ?Recorded omeprazole 20 mg capsule,delayed 20 mg PO DAILY #90 caps 06/27/24 release estradiol 0.01% (0.1 mg/gram) 0.25 appful vaginal 2XW #42.5 grams 07/05/24 vaginal cream sertraline 50 mg tablet 75 mg (1.5 x 50 mg) PO DAILY #135 08/13/24 tabs estradiol 0.05 mg/24 hr semiweekly 1 patch topical 2XW #25 patches 08/30/24 transdermal patch progesterone micronized 100 mg 100 mg PO QAM #90 caps 01/02/25 capsule sulfamethoxazole 800 1 tab PO BID 2 weeks #28 tabs 02/13/25 mg-trimethoprim 160 mg tablet Allergies Allergy/AdvReac Type Severity Reaction Status Date / Time Penicillins Allergy Severe rash, Verified 02/13/25 14:11 swelling cephalexin Allergy Intermediate Rash Verified 02/13/25 14:11 Cephalosporins Allergy Intermediate Rash Verified 02/13/25 14:11 lactase (From Dairy Aid) Allergy Intermediate ITCHING Verified 02/13/25 14:11 gluten AdvReac Intermediate Abdominal Verified 02/13/25 14:11 pain, diarrhea Milk Containing Products AdvReac Verified 02/13/25 14:11 (Dairy) Patient History Medical History (Updated 02/17/25 @ 15:10 by Balwinder Ly MD) COVID-19 Osteoarthritis of right knee History of adenomatous polyp of colon Primary osteoarthritis involving multiple joints Allergic rhinitis Menopausal syndrome History of malignant neoplasm of appendix Depression, major, recurrent Mixed hyperlipidemia Low grade mucinous neoplasm of appendix Hematuria Kidney stones Arthritis Heart murmur IBS (irritable bowel syndrome) Gluten intolerance Hepatitis C test positive H/O renal calculi Surgical History S/P total knee arthroplasty (~2015) S/P cholecystectomy S/P tubal ligation (~1979) Family History Sister Cancer Sister Cancer Social History details: (Vasyl), 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 Abrasions to the right side of the face and bridge of the nose. Pupils are equal round and reactive extraocular movements are intact. No nasal deformity. No malocclusion. Voice is normal no trismus. Neck is supple without midline tenderness Good range of motion of the thoracic and lumbar spine. Moving all 4 extremities spontaneously and equally. Abrasions over the left patella, she is tender over the left patella good active range of motion of the left knee Initial Vital Signs Initial Vital Signs: Vital Signs Temperature 98.0 F 02/17/25 12:21 Pulse Rate 79 02/17/25 12:21 Respiratory Rate 16 02/17/25 12:21 Blood Pressure 147/66 H 02/17/25 12:21 Pulse Oximetry 97 02/17/25 12:21 Oxygen Delivery Method Room Air 02/17/25 12:21 Course Orders Ordered: ED Orders 02/17/25 12:56 CT facial bones wo con Stat CT head/brain wo con Stat XR knee LT 3V Stat Discontinued Medications Acetaminophen (Acetaminophen 325 Mg Tablet) 975 mg PO NOW ONE Stop: 02/17/25 12:57 Last Admin: 02/17/25 13:20 Dose: 975 mg Documented By: ELISHA Vital Signs Vital signs: Vital Signs - 8 hr 02/17/25 12:21 02/17/25 13:24 02/17/25 13:25 Temperature 98.0 F Pulse Rate 79 78 Respiratory Rate 16 Blood Pressure 147/66 H 132/58 L Pulse Oximetry 97 97 Oxygen Delivery Method Room Air 02/17/25 13:25 02/17/25 13:30 02/17/25 13:30 Temperature Pulse Rate 81 72 Respiratory Rate Blood Pressure 137/62 Pulse Oximetry 98 95 Oxygen Delivery Method 02/17/25 14:00 02/17/25 14:00 02/17/25 14:30 Temperature Pulse Rate 71 Respiratory Rate Blood Pressure 123/63 129/63 Pulse Oximetry 95 Oxygen Delivery Method 02/17/25 14:30 Temperature Pulse Rate 72 Respiratory Rate Blood Pressure Pulse Oximetry 97 Oxygen Delivery Method MDM - Fall MDM Narrative Medical decision making narrative: Imaging was obtained, independently reviewed and reviewed radiology reports for CT head, CT facial bones and plain films of the left knee. There was a supraorbital hematoma of the facial soft tissues on the right there was no acute intracranial injury no facial fracture and no joint effusion or fracture of the left knee. 69-year-old female who is not anticoagulated had a ground level fall resulting in facial contusions and abrasions as well as abrasion to the left knee. Mental status is intact, no intracranial injury no facial fractures no knee fracture. Recommended symptomatic care and follow up with primary care, indications for return to emergency department were reviewed Discharge Plan Departure Patient Disposition: Home Clinical Impression: Contusion of face Qualifiers: Encounter type: initial encounter Qualified Code(s): S00.83XA - Contusion of other part of head, initial encounter Fall Qualifiers: Encounter type: initial encounter Qualified Code(s): W19.XXXA - Unspecified fall, initial encounter Abrasion of knee Qualifiers: Encounter type: initial encounter Laterality: left Qualified Code(s): S80.212A - Abrasion, left knee, initial encounter Head injury Qualifiers: Encounter type: initial encounter Qualified Code(s): S09.90XA - Unspecified injury of head, initial encounter Activity Restrictions/Additional Instructions: Emergency department workup today is reassuring. No serious injury is identified, I think it is safe to go home, you can use acetaminophen and/or ibuprofen at usual [id number] doses as needed for pain. I recommend antibiotic ointment on your facial abrasion and keep it covered if possible. Expect the bruising on your face to track down over time. Return to emergency department for severe headaches vomiting unsteadiness on her feet or other acute symptoms. Prescriptions: No Action omeprazole 20 mg capsule,delayed release(DR/EC) 20 mg PO DAILY Qty: 90 3RF estradiol 0.01 % (0.1 mg/gram) cream 0.25 appful vaginal 2XW Qty: 42.5 2RF sertraline 50 mg tablet 75 mg PO DAILY Qty: 135 3RF estradiol 0.05 mg/24 hr patch semiweekly 1 patch topical 2XW Qty: 25 3RF progesterone micronized 100 mg capsule 100 mg PO QAM Qty: 90 3RF cholecalciferol (vitamin D3) 25 mcg (1,000 unit) capsule 25 mcg PO DAILY sulfamethoxazole-trimethoprim 800-160 mg tablet 1 tab PO BID 14 Days Qty: 28 2RF triamcinolone acetonide 40 mg/mL suspension 40 mg intra-articular ONCE Qty: 1 0RF bupivacaine (PF) 0.25 % (2.5 mg/mL) solution 4 ml intra-articular ONCE Qty: 10 0RF Referrals: Nixon Guzmán MD [Primary Care Provider, Internal Medicine] Stand Alone Forms: Patient Portal/API
[2025-02-17] MEDS: ACETAMINOPHEN 325 MG TABLET 975 MG PO (13:20)
[2025-02-17 13:24] VITALS: PULSE 78; O2SAT 97
[2025-02-17 13:25] VITALS: BP 132/58; PULSE 81; O2SAT 98
--- NOTE | 2025-02-17 13:28 | PC.NURSE ---
AOx4, GCS 15, states she remembers the fall, trip/slip walking dog.
[2025-02-17 13:30] VITALS: BP 137/62; PULSE 72; O2SAT 95
[2025-02-17 14:00] VITALS: BP 123/63; PULSE 71; O2SAT 95
[2025-02-17 14:30] VITALS: BP 129/63; PULSE 72; O2SAT 97
== END 2025-02-17 15:20 | disposition home or self-care (01) ==
PROVIDERS: Emergency Provider Emergency Medicine; PCP Internal Medicine
DX: S00.83XA Contusion of other part of head, initial encounter (principal); S80.212A Abrasion, left knee, initial encounter; S09.90XA Unspecified injury of head, initial encounter; W01.0XXA Fall on same level from slipping, tripping and stumbling without subsequent striking against object, initial encounter
CPT/HCPCS: 70450; 70486; 73562; 99284